=== PATIENT | female | born 1960 | race Caucasian/White ===

== ENCOUNTER → 2018-05-28 | Outpatient (CLI) | payer OTHER | END | disposition home or self-care (01) | LOC: RAD 15:02 | PROVIDERS: ATTEND Registered Nurse | DX: I51.7 Cardiomegaly (principal); R06.02 Shortness of breath; Z87.891 Personal history of nicotine dependence | CPT/HCPCS: 71046 ==

== ENCOUNTER 2018-07-27 08:04 | Day surgery (SDC) | payer OTHER ==
[~2018-07-27] VITALS: Ht 165.1 cm; Wt 96.4 kg
[2018-07-27 08:41] VITALS: BP 148/97
[2018-07-27] MEDS ORDERED: DILT240C61 PO (08:54)
[2018-07-27] MEDS ORDERED: ATOR20TA37 PO (08:54)
[2018-07-27] MEDS ORDERED: LEVO125T5 PO (08:54)
[2018-07-27] MEDS ORDERED: LISI1TAB5 PO (08:54)
[2018-07-27] MEDS ORDERED: ATEN50TA41 PO (08:54)
[2018-07-27] MEDS ORDERED: CLON1TAB11 PO (08:54)
[2018-07-27 09:48] LABS: BASOPHILS # (AUTO) 0.06 x10^3/uL (0-0.1); BASOPHILS % (AUTO) 1 % (0-1); EOSINOPHILS # (AUTO) 0.08 x10^3/uL (0-0.4); EOSINOPHILS % (AUTO) 1 % (1-7); LYMPHOCYTES # (AUTO) 2.78 x10^3/uL (1-3.4); LYMPHOCYTES % (AUTO) 31 % (22-44); MD NO; MEAN CORPUSCULAR HEMOGLOBIN 30.1 pg (27.0-34.8); MEAN CORPUSCULAR VOLUME 91.2 fL (80-100); MEAN PLATELET VOLUME 10.7 fL (7.4-10.4); MONOCYTES % (AUTO) 7 % (2-9); NEUTROPHILS # (AUTO) 5.43 x10^3/uL (1.8-6.8); NEUTROPHILS % (AUTO) 61 % (42-75); PLATELET COUNT 203 x10^3/uL (130-400); RED BLOOD COUNT 5.01 x10^6/uL (3.82-5.3); RED CELL DISTRIBUTION WIDTH 15.1 % (9.6-15.2)
[2018-07-27] MEDS ORDERED: MIDAZOLAM 1 MG/ML, 5ML ONE (09:53)
[2018-07-27] MEDS ORDERED: FENTANYL PF 250 MCG/5ML ONE (09:54)
[2018-07-27] MEDS ORDERED: LIDOCAINE 1%, 20ML ONE (09:54)
[2018-07-27 09:56] LABS: ANION GAP 7 mmol/L (5-15); CHLORIDE 110 mmol/L (98-107); CREATININE 1.23 mg/dL (0.55-1.02)
[2018-07-27] MEDS ORDERED: HEPARIN 1,000 UNITS/ML, 10ML ONE (10:45)
[2018-07-27] MEDS ORDERED: VERAPAMIL 2.5 MG/ML, 2ML ONE (10:45)
[2018-07-27] MEDS ORDERED: NITROGLYCERIN 5 MG/ML, 10ML ONE (10:45)
[2018-07-27] MEDS ORDERED: DIPHENHYDRAMINE 50 MG/ML, 1ML ONE (10:48)
[2018-07-27] MEDS ORDERED: LIDOCAINE-MPF 1%, 5ML ONE (11:35)
[2018-07-27] MEDS ORDERED: SODIUM CHLORIDE 0.9% 1,000 ML IV SCH (12:58)
== END 2018-07-27 14:59 | disposition home or self-care (01) ==
LOC: CACL 08:04
PROVIDERS: ATTEND Internal Medicine Cardiovascular Disease
DX: I27.20 Pulmonary hypertension, unspecified (principal); Z87.891 Personal history of nicotine dependence; Z72.89 Other problems related to lifestyle; I42.1 Obstructive hypertrophic cardiomyopathy; J44.9 Chronic obstructive pulmonary disease, unspecified; E78.5 Hyperlipidemia, unspecified
CPT/HCPCS: 36415; 80048; 85025; 93460; 99156; 99157; C1769; C1894; J1200; J1644; J2250; J3010; J3490; Q9967

== ENCOUNTER 2018-10-24 16:31 | Inpatient (IN) | payer OTHER ==
[~2018-10-24] VITALS: Ht 165.1 cm; Wt 85.9 kg
[2018-10-24] VITALS (7 sets, daily range): BP systolic 78–98; BP diastolic 36–54
[~2018-10-24 16:31] MED LIST: ATEN50TA41 PO; ATOR20TA37 PO; CLON1TAB11 PO; DILT240C61 PO; LEVO125T5 PO; LISI1TAB5 PO
--- NOTE | 2018-10-24 17:42 | NUR ---
PT WITH CO "FEELING FUZZY" X TODAY. PT REPORTS "HEARING HEART BEAT IN EARS" X TODAY AND DOUBLED HER ATENOLOL DOSE ASSUMING HTN. PT W/ MILD HYPOTENSION AT THIS TIME, 100/60 MANUALLY. PT PWD; DENIES CP/DIZZINESS/WEAKNESS AT THIS TIME. PT REPORTS RECENT ILLNESS, N/V/D TWO DAYS AGO. HX OF PULMONARY HTN, WEARS 5L O2 BY NC AT BASELINE. SPO2 >90% ON BASELINE O2. RR 20'S. PT APPEARS ANXIOUS. IV ATTEMPT X2 BY TECH. PER ERP, HOLD NEED FOR IV UNTIL LABS RESULT. BP/SPO2/ECG MONITORING IN PLACE. NSR ON MONITOR.
[2018-10-24] MEDS ORDERED: SODIUM CHLORIDE FLUSH 10ML SYR IVF ONE (18:00)
[2018-10-24 18:14] LABS: ALANINE AMINOTRANSFERASE 54 U/L (12-78); ALBUMIN 3.6 g/dL (3.4-5.0); ANION GAP 11 mmol/L (5-15); CALCIUM 8.6 mg/dL (8.5-10.1); CHLORIDE 103 mmol/L (98-107); CREATININE 2.02 mg/dL (0.55-1.02)
[2018-10-24 18:18] LABS: ALKALINE PHOSPHATASE 93 U/L (45-117); BILIRUBIN,TOTAL < 0.1 mg/dL (0.2-1.0); TOTAL PROTEIN 6.9 g/dL (6.4-8.2); TROPONIN I 0.042 ng/mL (0.000-0.045)
[2018-10-24 18:21] LABS: MEAN CORPUSCULAR HEMOGLOBIN 31.3 pg (27.0-34.8); MEAN CORPUSCULAR HGB CONC 32.7 g/dL (32.4-35.8); MEAN CORPUSCULAR VOLUME 95.7 fL (80-100); MEAN PLATELET VOLUME 10.2 fL (7.4-10.4); PLATELET COUNT 236 x10^3/uL (130-400); RED CELL DISTRIBUTION WIDTH 15.8 % (9.6-15.2)
[2018-10-24 18:22] LABS: HEMOGRAM NOTE RECHECKED
--- NOTE | 2018-10-24 18:22 | NUR ---
TASK RN: Critical values charted. ED MD aware. No lab redraw per ED MD.
[2018-10-24] MEDS ORDERED: SPIR25TA5 PO (18:40)
[2018-10-24] MEDS ORDERED: AMBR10TA3 PO (18:40)
[2018-10-24] MEDS ORDERED: TADA20TA33 PO (18:40)
[2018-10-24 19:06] LABS: MD YES
[2018-10-24 19:07] LABS: BAND#(MANUAL) 0.15 x10^3/uL; BANDS%(MANUAL) 1 % (0-7); LYMPH#(MANUAL) 3.02 x10^3/uL (1-3.4); LYMPHS% (MANUAL) 20 % (22-44); MONOS#(MANUAL) 0.76 x10^3/uL (0.3-2.7); MONOS% (MANUAL) 5 % (2-9)
[2018-10-24 19:10] LABS: ANISOCYTOSIS 1+; METAMYELOCYTES# (MANUAL) 0.15 x10^3/uL (0-0); METAMYELOCYTES% (MANUAL) 1 % (0-1); SEGS% (MANUAL) 73 % (42-75)
[2018-10-24 19:11] LABS: <PLATELET ESTIMATE> ADEQUATE; POLYCHROMASIA 1+
[2018-10-24 19:12] LABS: <PLT MORPHOLOGY> NORMAL PLT MORPH
--- NOTE | 2018-10-24 19:13 | NUR ---
IV PLACED BY JAYCEE BRUMFIELD. CONSENT FOR BLOOD SIGNED AND IS ON CHART.
--- NOTE | 2018-10-24 19:34 | NUR ---
REQUEST FOR BLOOD SENT. PER ERP, 500ML NS BOLUS HUNG FOR TX OF HYPOTENSION.
[2018-10-24] MEDS ORDERED: PANTOPRAZOLE 80 MG in SODIUM CHLORIDE 0.9% 50 ML IVPB ONE ×2 (19:40→21:00)
--- NOTE | 2018-10-24 19:42 | NUR ---
FIRST UNIT RBC HUNG. VERIFIED BY MATEO JIMÉNEZ. HOSPITALIST, PA AT BEDSIDE. 500ML NS BOLUS CONTINUES TO INFUSE.
--- NOTE | 2018-10-24 19:55 | NUR ---
PT COMFORTABLY HOLDING CONVERSATION WITH HOSPITALIST. NO S/S OF TRANSFUSION RXN NOTED.
[2018-10-24] MEDS ORDERED: SODIUM CHLORIDE 0.9% 1,000ML IVBOLUS ONE (20:00)
[2018-10-24] MEDS ORDERED: PANTOPRAZOLE 80 MG in SODIUM CHLORIDE 0.9% 100 ML IV SCH ×2 (20:00→21:15)
--- NOTE | 2018-10-24 20:07 | NUR ---
REPORT TO FLOOR RNDEENA. PROTONIX ORDERED ON PT. BLOOD RUNNING AT THIS TIME. FLOOR RN AGREES TO HANG PROTONIX BETWEEN UNITS. HOSPITALIST AWARE AND AGREES TO ORDER PROTONIX FLOOR ORDER.
--- NOTE | 2018-10-24 20:25 | NUR ---
PT TO FLOOR. BLOOD CONTINUES TO INFUSE
[2018-10-24] MEDS ORDERED: ONDANSETRON 2MG/ML, 2ML IVPush PRN (20:30)
[2018-10-24] MEDS ORDERED: ACETAMINOPHEN 325 MG TABLET PO PRN (20:30)
[2018-10-24 20:51] LABS: INTERNATIONAL NORMALIZED RATIO 0.97 (0.93-1.1); PROTHROMBIN TIME 10.2 Seconds (9.6-11.5)
[2018-10-24] MEDS: LACTATED RINGERS 1,000 ML IV SCH (23:20)
[2018-10-25] VITALS (13 sets, daily range): BP systolic 85–111; BP diastolic 5–70
[2018-10-25] MEDS ORDERED: SODIUM CHLORIDE 0.9%, 500ML IVBOLUS ONE
[2018-10-25] MEDS: morphine SULFATE 10 MG/ML, 1ML IVPush PRN ×4 (01:12→22:24)
[2018-10-25 02:15] LABS: ANION GAP 11 mmol/L (5-15); CALCIUM 8.2 mg/dL (8.5-10.1); CHLORIDE 109 mmol/L (98-107); CREATININE 1.57 mg/dL (0.55-1.02)
[2018-10-25] MEDS: LEVOTHYROXINE 125 MCG TABLET PO SCH (05:17)
[2018-10-25 05:34] LABS: BASOPHILS # (AUTO) 0.15 x10^3/uL (0-0.1); BASOPHILS % (AUTO) 1 % (0-1); EOSINOPHILS # (AUTO) 0.07 x10^3/uL (0-0.4); EOSINOPHILS % (AUTO) 1 % (1-7); LYMPHOCYTES # (AUTO) 2.24 x10^3/uL (1-3.4); LYMPHOCYTES % (AUTO) 18 % (22-44); MD NO; MEAN CORPUSCULAR HEMOGLOBIN 31.7 pg (27.0-34.8); MEAN CORPUSCULAR HGB CONC 33.8 g/dL (32.4-35.8); MEAN CORPUSCULAR VOLUME 93.8 fL (80-100); MEAN PLATELET VOLUME 9.8 fL (7.4-10.4); MONOCYTES # (AUTO) 0.84 x10^3/uL (0.2-0.8); MONOCYTES % (AUTO) 7 % (2-9); NEUTROPHILS # (AUTO) 9.17 x10^3/uL (1.8-6.8); NEUTROPHILS % (AUTO) 74 % (42-75); PLATELET COUNT 176 x10^3/uL (130-400); RED BLOOD COUNT 2.45 x10^6/uL (3.82-5.3)
[2018-10-25 05:41] LABS: CHLORIDE 109 mmol/L (98-107)
[2018-10-25 05:51] LABS: ANION GAP 8 mmol/L (5-15); CALCIUM 8.3 mg/dL (8.5-10.1); CHOL/HDL RATIO 3.9; CHOLESTEROL, TOTAL 144 mg/dL (140-239); CREATININE 1.39 mg/dL (0.55-1.02); HDL CHOL % 26 % (28-40); HDL CHOLESTEROL (DIRECT) 37 mg/dL (40-60); LDL CHOLESTEROL,CALCULATED 78 mg/dL (54-169); LDL/HDL RATIO 2.1 (0.5-3.0); TRIGLYCERIDES 143 mg/dL (50-200); VLDL CHOLESTEROL 29 mg/dL (0-25)
[2018-10-25] MEDS ORDERED: PROPOFOL 10 MG/ML, 20ML ONE (08:39)
[2018-10-25] MEDS ORDERED: PROPOFOL 10 MG/ML, 50ML ONE (08:39)
[2018-10-25] MEDS ORDERED: AMBRISENTAN 10 MG HOMEMEDPO SCH (09:00)
[2018-10-25] MEDS ORDERED: Tadalafil** (Adcirca**) 40 MG) HOMEMEDPO SCH (09:00)
[2018-10-25] MEDS ORDERED: DIPHENHYDRAMINE 50 MG/ML, 1ML IVPush PRN (09:30)
[2018-10-25] MEDS ORDERED: EPHEDRINE 50 MG/ML, 1ML IVPush PRN (09:30)
[2018-10-25] MEDS ORDERED: EPHEDRINE 50 MG/ML, 1ML IM PRN (09:30)
[2018-10-25] MEDS ORDERED: ONDANSETRON ODT 8 MG PO PRN (09:30)
[2018-10-25] MEDS ORDERED: OXYcodone 5 MG/5 ML ORAL.SOL UDC PO PRN (09:30)
[2018-10-25] MEDS ORDERED: MIDAZOLAM 1 MG/ML, 2ML IV PRN (09:30)
[2018-10-25] MEDS ORDERED: MORPHINE SULFATE 4 MG/ML, 1ML IVPush PRN (09:30)
[2018-10-25] MEDS ORDERED: FENTANYL PF 100 MCG/2ML IV PRN (09:30)
[2018-10-25] MEDS ORDERED: ONDANSETRON 2MG/ML, 2ML IV PRN (09:30)
[2018-10-25] MEDS: OMEPRAZOLE 20 MG CAPSULE.DR PO SCH (10:28)
[2018-10-25] MEDS: LACTATED RINGERS 1,000 ML IV SCH (16:19)
[2018-10-26] MEDS: morphine SULFATE 10 MG/ML, 1ML IVPush PRN (01:57)
[2018-10-26 02:02] VITALS: BP 113/61
[2018-10-26] MEDS: OMEPRAZOLE 20 MG CAPSULE.DR PO SCH (05:47)
[2018-10-26] MEDS: LEVOTHYROXINE 125 MCG TABLET PO SCH (05:48)
[2018-10-26] MEDS: LACTATED RINGERS 1,000 ML IV SCH (05:59)
[2018-10-26 07:41] VITALS: BP 100/64
[2018-10-26 08:38] LABS: ALANINE AMINOTRANSFERASE 32 U/L (12-78); ANION GAP 9 mmol/L (5-15); CALCIUM 8.2 mg/dL (8.5-10.1); CHLORIDE 109 mmol/L (98-107); CREATININE 0.99 mg/dL (0.55-1.02)
[2018-10-26 08:41] LABS: ALKALINE PHOSPHATASE 85 U/L (45-117); BILIRUBIN,TOTAL 0.3 mg/dL (0.2-1.0); TOTAL PROTEIN 6.1 g/dL (6.4-8.2)
[2018-10-26 12:16] LABS: MEAN CORPUSCULAR HEMOGLOBIN 31.4 pg (27.0-34.8); MEAN CORPUSCULAR HGB CONC 33.1 g/dL (32.4-35.8); MEAN CORPUSCULAR VOLUME 95.1 fL (80-100); MEAN PLATELET VOLUME 9.5 fL (7.4-10.4); PLATELET COUNT 179 x10^3/uL (130-400); RED BLOOD COUNT 2.35 x10^6/uL (3.82-5.3); RED CELL DISTRIBUTION WIDTH 15.8 % (9.6-15.2)
[2018-10-26 12:52] LABS: BASOPHILS # (AUTO) 0.03 x10^3/uL (0-0.1); BASOPHILS % (AUTO) 0 % (0-1); EOSINOPHILS # (AUTO) 0.09 x10^3/uL (0-0.4); EOSINOPHILS % (AUTO) 1 % (1-7); LYMPHOCYTES # (AUTO) 1.53 x10^3/uL (1-3.4); LYMPHOCYTES % (AUTO) 14 % (22-44); MD SCAN; MONOCYTES # (AUTO) 0.81 x10^3/uL (0.2-0.8); MONOCYTES % (AUTO) 7 % (2-9); NEUTROPHILS % (AUTO) 78 % (42-75)
[2018-10-26] MEDS ORDERED: OMEP-110 PO (12:58)
[2018-10-26] MEDS ORDERED: FERR325T5 PO (12:58)
[2018-10-26 13:35] VITALS: BP 109/68
== END 2018-10-26 14:42 | disposition home or self-care (01) | DRG 682 ==
LOC: ED 19:27 → EDIP 20:08 → 4EST 20:45 → 4WST 10-25 21:10 → DCLOUNGE 10-26 14:13
PROVIDERS: ADMIT Family Medicine; ATTEND Family Medicine
PROC: 30233N1 Transfusion of Nonautologous Red Blood Cells into Peripheral Vein, Percutaneous Approach (ICD-10-PCS; principal; 2018-10-24)
PROC: 0DB68ZX Excision of Stomach, Via Natural or Artificial Opening Endoscopic, Diagnostic (ICD-10-PCS; 2018-10-25)
PROC: 0W3P8ZZ Control Bleeding in Gastrointestinal Tract, Via Natural or Artificial Opening Endoscopic (ICD-10-PCS; 2018-10-25)
DX: N17.9 Acute kidney failure, unspecified (principal); K29.71 Gastritis, unspecified, with bleeding; K29.81 Duodenitis with bleeding; J96.10 Chronic respiratory failure, unspecified whether with hypoxia or hypercapnia; D62 Acute posthemorrhagic anemia; K31.89 Other diseases of stomach and duodenum; D50.9 Iron deficiency anemia, unspecified; E03.9 Hypothyroidism, unspecified; E66.9 Obesity, unspecified; Z68.31 Body mass index [BMI] 31.0-31.9, adult; E78.5 Hyperlipidemia, unspecified; E87.5 Hyperkalemia; F41.1 Generalized anxiety disorder; I10 Essential (primary) hypertension; H93.A9 Pulsatile tinnitus, unspecified ear; I27.21 Secondary pulmonary arterial hypertension; I73.00 Raynaud's syndrome without gangrene; I99.8 Other disorder of circulatory system; Z83.79 Family history of other diseases of the digestive system; Z87.891 Personal history of nicotine dependence; Z99.81 Dependence on supplemental oxygen
CPT/HCPCS: 36415; 36430; 71045; 80048; 80053; 80061; 83880; 84439; 84443; 84484; 85014; 85018; 85025; 85610; 85730; 86850; 86900; 86923; 87338; 88305; 88342; 93005; 93306; G0378; J2704; C9113; J2270; J7030; J7040; J7120; P9016

== ENCOUNTER 2018-10-28 13:02 | Inpatient (IN) | payer OTHER ==
[~2018-10-28] VITALS: Ht 165.1 cm; Wt 93.2 kg
[~2018-10-28 13:02] MED LIST changes: +AMBR10TA3 PO; +FERR325T5 PO; +OMEP-110 PO; +SPIR25TA5 PO; +TADA20TA33 PO
--- NOTE | 2018-10-28 13:54 | NUR ---
PT ON HEART MONITOR, BP CUFF, PULSE OX AND OXYGEN. PT HYPOTENSIVE 80S/50S, IVF BOLUS INFUSING. LABS DRAWN, HOLD ON PAIN MEDS AT THIS TIME D/T HYPOTENSION. CALL LIGHT WITHIN REACH, FAMILY AT BS.
[2018-10-28] MEDS ORDERED: SODIUM CHLORIDE FLUSH 10ML SYR IVF ONE (14:00)
[2018-10-28] MEDS ORDERED: SODIUM CHLORIDE 0.9% 1,000ML IVBOLUS ONE (14:00)
[2018-10-28] MEDS ORDERED: HYDROmorphone 2 MG/ML, 1ML ONE (14:08)
[2018-10-28 14:15] LABS: ALANINE AMINOTRANSFERASE 36 U/L (12-78); ALBUMIN 2.7 g/dL (3.4-5.0); ANION GAP 8 mmol/L (5-15); CALCIUM 8.2 mg/dL (8.5-10.1); CHLORIDE 104 mmol/L (98-107); CREATININE 0.88 mg/dL (0.55-1.02)
[2018-10-28] MEDS: HYDROmorphone 1 MG/ML, 1ML INJ IVPush PRN ×2 (14:15→16:23)
--- NOTE | 2018-10-28 14:16 | NUR ---
BP 91/52, PT MEDICATED WITH DILAUDID FOR 8/10 R SHOULDER PAIN. FAMILY AT BS.
--- NOTE | 2018-10-28 14:20 | NUR ---
PT RATES PAIN AT 0/10 WITHOUT MOVEMENT AT THIS TIME. BP 90/52.
[2018-10-28 14:22] LABS: ALKALINE PHOSPHATASE 73 U/L (45-117); BILIRUBIN,TOTAL 0.7 mg/dL (0.2-1.0); TOTAL PROTEIN 6.2 g/dL (6.4-8.2)
[2018-10-28 14:41] LABS: MEAN CORPUSCULAR HGB CONC 32.7 g/dL (32.4-35.8); MEAN CORPUSCULAR VOLUME 94.9 fL (80-100); MEAN PLATELET VOLUME 10.9 fL (7.4-10.4); PLATELET COUNT 195 x10^3/uL (130-400); RED BLOOD COUNT 2.32 x10^6/uL (3.82-5.3); RED CELL DISTRIBUTION WIDTH 16.3 % (9.6-15.2)
--- NOTE | 2018-10-28 14:42 | NUR ---
CRITICAL LABS REPORTED TO DR JENKINS.
[2018-10-28] MEDS ORDERED: PLEASE ENTER HEIGHT AND WEIGHT MC SCH (15:00)
[2018-10-28] MEDS ORDERED: CEFTRIAXONE PMX 1GM/50ML 50 ML IVPB ONE (15:00)
--- NOTE | 2018-10-28 15:01 | NUR ---
2ND IV PLACED, VSS.
[2018-10-28] MEDS ORDERED: CEFTRIAXONE PMX 1GM/50ML 50 ML ONE (15:12)
[2018-10-28 15:20] LABS: BASOPHILS # (AUTO) 0.25 x10^3/uL (0-0.1); BASOPHILS % (AUTO) 2 % (0-1); EOSINOPHILS # (AUTO) 0.02 x10^3/uL (0-0.4); EOSINOPHILS % (AUTO) 0 % (1-7); LYMPHOCYTES # (AUTO) 1.08 x10^3/uL (1-3.4); LYMPHOCYTES % (AUTO) 9 % (22-44); MD SCAN; MONOCYTES # (AUTO) 0.58 x10^3/uL (0.2-0.8); MONOCYTES % (AUTO) 5 % (2-9); NEUTROPHILS # (AUTO) 10.65 x10^3/uL (1.8-6.8); NEUTROPHILS % (AUTO) 85 % (42-75)
--- NOTE | 2018-10-28 15:20 | NUR ---
EKG ORDERED/GROUP THERAPY COUNSELOR IN TO COMPLETE.
[2018-10-28 15:35] LABS: HCT (SEDRATE) 22.4 % (34.6-47.8)
--- NOTE | 2018-10-28 15:51 | NUR ---
REPORT TO NASRIN GALINDO. PT READY FOR TRANSPORT. MED REC COMPLETED.
--- NOTE | 2018-10-28 16:02 | NUR ---
ROOM ASSIGNMENT CHANGED TO TELE.
--- NOTE | 2018-10-28 16:42 | NUR ---
Critical lab reieved over phone, trop [phone]. Dr raya and primary RN aware.
[2018-10-28] MEDS ORDERED: hydrALAzine 20 MG/ML, 1ML IVPush PRN (17:30)
[2018-10-28] MEDS ORDERED: FUROSEMIDE 20 MG/2 ML IV ONE (17:30)
[2018-10-28] MEDS ORDERED: morphine SULFATE 10 MG/ML, 1ML IVPush PRN ×2 (17:30→20:30)
[2018-10-28] MEDS ORDERED: BACLOFEN 10 MG TABLET PO PRN (17:30)
[2018-10-28] MEDS ORDERED: HYDROcodone/APAP 5/325 TABLET PO PRN ×2 (17:30→21:30)
[2018-10-28] MEDS ORDERED: POLYETHYLENE GLYCOL 17 GM PACKET PO PRN (17:30)
[2018-10-28] MEDS ORDERED: ENALAPRILAT 1.25 MG/ML, 2ML IVPush PRN (17:30)
[2018-10-28] MEDS ORDERED: LIDODERM 5% PATCH TD PRN (17:30)
[2018-10-28] MEDS ORDERED: BISACODYL 10 MG SUPP PR PRN (17:30)
[2018-10-28 17:38] VITALS: BP 107/69
[2018-10-28] MEDS: ACETAMINOPHEN 325 MG TABLET PO PRN (17:43)
[2018-10-28 17:58] LABS: INTERNATIONAL NORMALIZED RATIO 0.99 (0.93-1.1); PROTHROMBIN TIME 10.4 Seconds (9.6-11.5)
[2018-10-28 18:05] LABS: FREE T4 (FREE THYROXINE) 0.79 ng/dL (0.76-1.46)
[2018-10-28] MEDS: AZITHROMYCIN 500 MG in SODIUM CHLORIDE 0.9% 250 ML IV SCH (18:19)
[2018-10-28 18:22] VITALS: BP 95/58
[2018-10-28 19:07] LABS: CULTURE INDICATED? YES; MICROSCOPIC INDICATED
[2018-10-28 20:25] VITALS: BP 90/55
[2018-10-28] MEDS ORDERED: LEVO125T5 PO (20:42)
[2018-10-28 20:51] VITALS: BP 93/59
[2018-10-28] MEDS ORDERED: DOCUSATE 100 MG CAPSULE PO PRN (21:00)
[2018-10-28 21:40] VITALS: BP 92/60
[2018-10-28 23:37] VITALS: BP 132/83
[2018-10-29] VITALS (13 sets, daily range): BP systolic 91–124; BP diastolic 56–76
[2018-10-29] MEDS: ATORVASTATIN 20 MG TABLET PO SCH ×2 (00:03→21:06)
[2018-10-29 05:30] LABS: ALBUMIN 2.6 g/dL (3.4-5.0); ANION GAP 8 mmol/L (5-15); CALCIUM 8.6 mg/dL (8.5-10.1); CHLORIDE 106 mmol/L (98-107)
[2018-10-29 05:36] LABS: ALANINE AMINOTRANSFERASE 45 U/L (12-78); ALKALINE PHOSPHATASE 75 U/L (45-117); BILIRUBIN,TOTAL 0.8 mg/dL (0.2-1.0); CHOL/HDL RATIO 2.6; CHOLESTEROL, TOTAL 148 mg/dL (140-239); CREATININE 0.87 mg/dL (0.55-1.02); HDL CHOL % 39 % (28-40); HDL CHOLESTEROL (DIRECT) 57 mg/dL (40-60); LDL CHOLESTEROL,CALCULATED 76 mg/dL (54-169); LDL/HDL RATIO 1.3 (0.5-3.0); TOTAL PROTEIN 6.2 g/dL (6.4-8.2); TRIGLYCERIDES 74 mg/dL (50-200); VLDL CHOLESTEROL 15 mg/dL (0-25)
[2018-10-29] MEDS ORDERED: OMEPRAZOLE 20 MG CAPSULE.DR PO SCH (06:00)
[2018-10-29] MEDS ORDERED: FLUT9.9S NAS (06:25)
[2018-10-29] MEDS ORDERED: POTASSIUM CHLORIDE 20 MEQ TAB.ER.PRT PO ONE (06:30)
[2018-10-29] MEDS ORDERED: MAGNESIUM SULFATE PMX 2GM/50ML 50 ML IV ONE (06:30)
[2018-10-29] MEDS ORDERED: PANTOPRAZOLE 40 MG IV IVPush SCH (07:30)
[2018-10-29] MEDS ORDERED: FUROSEMIDE 20 MG/2 ML IV ONE (08:00)
[2018-10-29] MEDS: LEVOTHYROXINE 125 MCG TABLET PO SCH (09:32)
[2018-10-29] MEDS: SUCRALFATE 1 GM/10 ML UDC PO SCH ×3 (12:26→21:06)
[2018-10-29] MEDS: CEFTRIAXONE PMX 1GM/50ML 50 ML IV SCH (15:19)
[2018-10-29] MEDS ORDERED: PANTOPROZOLE 40MG TABLET PO SCH (16:33)
[2018-10-29] MEDS ORDERED: GADOBUTROL 10 MMOL/10 ML PFS ONE (17:56)
[2018-10-29] MEDS: AZITHROMYCIN 500 MG in SODIUM CHLORIDE 0.9% 250 ML IV SCH (18:33)
[2018-10-29] MEDS: FERROUS SULFATE 325 MG TABLET PO SCH (18:34)
[2018-10-29] MEDS ORDERED: ADCIRCA 20 MG HOMEMEDPO SCH (21:00)
[2018-10-29] MEDS: PANTOPRAZOLE 40 MG IV IVPush SCH (21:06)
[2018-10-30] MEDS ORDERED: DIPHENHYDRAMINE 50 MG CAPSULE PO PRN
[2018-10-30 02:21] VITALS: BP 90/56
[2018-10-30] MEDS: ACETAMINOPHEN 325 MG TABLET PO PRN ×2 (05:32→09:41)
[2018-10-30 05:42] LABS: BASOPHILS # (AUTO) 0.02 x10^3/uL (0-0.1); BASOPHILS % (AUTO) 0 % (0-1); EOSINOPHILS % (AUTO) 4 % (1-7); LYMPHOCYTES # (AUTO) 1.77 x10^3/uL (1-3.4); LYMPHOCYTES % (AUTO) 22 % (22-44); MD NO; MEAN CORPUSCULAR HEMOGLOBIN 30.3 pg (27.0-34.8); MEAN CORPUSCULAR HGB CONC 32.9 g/dL (32.4-35.8); MEAN CORPUSCULAR VOLUME 92.1 fL (80-100); MEAN PLATELET VOLUME 10.2 fL (7.4-10.4); MONOCYTES % (AUTO) 5 % (2-9); NEUTROPHILS # (AUTO) 5.39 x10^3/uL (1.8-6.8); NEUTROPHILS % (AUTO) 69 % (42-75); PLATELET COUNT 214 x10^3/uL (130-400); RED CELL DISTRIBUTION WIDTH 16.8 % (9.6-15.2)
[2018-10-30 06:05] LABS: CHLORIDE 108 mmol/L (98-107)
[2018-10-30 06:09] LABS: ANION GAP 7 mmol/L (5-15); CALCIUM 8.2 mg/dL (8.5-10.1); CREATININE 0.95 mg/dL (0.55-1.02)
[2018-10-30] MEDS: SUCRALFATE 1 GM/10 ML UDC PO SCH ×4 (07:00→20:50)
[2018-10-30 07:02] VITALS: BP 91/56
[2018-10-30] MEDS: FERROUS SULFATE 325 MG TABLET PO SCH ×3 (08:00→17:20)
[2018-10-30] MEDS: FLUTICASONE NASAL SPRAY 16GM NAS SCH ×2 (09:34→20:51)
[2018-10-30] MEDS: SPIRONOLACTONE 25 MG TABLET PO SCH (09:36)
[2018-10-30] MEDS: LEVOTHYROXINE 125 MCG TABLET PO SCH (09:36)
[2018-10-30] MEDS: PANTOPRAZOLE 40 MG IV IVPush SCH (09:36)
[2018-10-30] MEDS: CEFTRIAXONE PMX 1GM/50ML 50 ML IV SCH (14:36)
[2018-10-30 15:56] VITALS: BP 94/63
[2018-10-30] MEDS: AZITHROMYCIN 500 MG in SODIUM CHLORIDE 0.9% 250 ML IV SCH (17:20)
[2018-10-30 18:54] VITALS: BP 109/72
[2018-10-30 20:50] VITALS: BP 111/74
[2018-10-30] MEDS: ATORVASTATIN 20 MG TABLET PO SCH (20:50)
[2018-10-31] MEDS: ACETAMINOPHEN 325 MG TABLET PO PRN (00:08)
[2018-10-31 00:40] VITALS: BP 90/56
[2018-10-31 05:50] LABS: BASOPHILS # (AUTO) 0.16 x10^3/uL (0-0.1); BASOPHILS % (AUTO) 2 % (0-1); EOSINOPHILS # (AUTO) 0.29 x10^3/uL (0-0.4); EOSINOPHILS % (AUTO) 4 % (1-7); LYMPHOCYTES # (AUTO) 1.63 x10^3/uL (1-3.4); LYMPHOCYTES % (AUTO) 22 % (22-44); MD NO; MEAN CORPUSCULAR HEMOGLOBIN 29.8 pg (27.0-34.8); MEAN CORPUSCULAR HGB CONC 32.4 g/dL (32.4-35.8); MEAN CORPUSCULAR VOLUME 91.9 fL (80-100); MEAN PLATELET VOLUME 9.5 fL (7.4-10.4); MONOCYTES # (AUTO) 0.45 x10^3/uL (0.2-0.8); MONOCYTES % (AUTO) 6 % (2-9); NEUTROPHILS # (AUTO) 4.93 x10^3/uL (1.8-6.8); NEUTROPHILS % (AUTO) 66 % (42-75); PLATELET COUNT 245 x10^3/uL (130-400); RED BLOOD COUNT 2.51 x10^6/uL (3.82-5.3); RED CELL DISTRIBUTION WIDTH 16.7 % (9.6-15.2)
[2018-10-31 05:55] LABS: CHLORIDE 111 mmol/L (98-107)
[2018-10-31 06:05] LABS: ALANINE AMINOTRANSFERASE 54 U/L (12-78); ALBUMIN 2.3 g/dL (3.4-5.0); ALKALINE PHOSPHATASE 79 U/L (45-117); BILIRUBIN,TOTAL 0.3 mg/dL (0.2-1.0); CALCIUM 8.3 mg/dL (8.5-10.1); CREATININE 0.82 mg/dL (0.55-1.02); TOTAL PROTEIN 5.5 g/dL (6.4-8.2)
[2018-10-31 06:12] LABS: ANION GAP 7 mmol/L (5-15)
[2018-10-31] MEDS: SUCRALFATE 1 GM/10 ML UDC PO SCH ×2 (07:10→11:42)
[2018-10-31 08:32] VITALS: BP 104/67
[2018-10-31] MEDS: FERROUS SULFATE 325 MG TABLET PO SCH ×2 (08:36→11:43)
[2018-10-31] MEDS: LEVOTHYROXINE 125 MCG TABLET PO SCH (08:36)
[2018-10-31] MEDS: SPIRONOLACTONE 25 MG TABLET PO SCH (08:36)
[2018-10-31] MEDS: FLUTICASONE NASAL SPRAY 16GM NAS SCH (08:40)
[2018-10-31 12:29] LABS: OCCULT BLOOD NEGATIVE (NEGATIVE)
[2018-10-31 13:00] VITALS: BP 127/82
[2018-10-31] MEDS ORDERED: LIDO700A20 TD (14:56)
[2018-10-31] MEDS ORDERED: SUCR1ORA5 PO (14:56)
[2018-10-31] MEDS: CEFTRIAXONE PMX 1GM/50ML 50 ML IV SCH (15:35)
[2018-10-31] MEDS ORDERED: CEFD300C37 PO (16:53)
[2018-10-31] MEDS ORDERED: AZIT500T PO (16:53)
== END 2018-10-31 16:45 | disposition home or self-care (01) | DRG 871 ==
LOC: ED 15:55 → EDIP 16:08 → 5SO 17:17 → DCLOUNGE 10-31 16:43
PROVIDERS: ADMIT Hospitalist; ATTEND Hospitalist
PROC: 30233N1 Transfusion of Nonautologous Red Blood Cells into Peripheral Vein, Percutaneous Approach (ICD-10-PCS; principal; 2018-10-28)
DX: A41.9 Sepsis, unspecified organism (principal); J18.9 Pneumonia, unspecified organism; J96.11 Chronic respiratory failure with hypoxia; D50.0 Iron deficiency anemia secondary to blood loss (chronic); E03.9 Hypothyroidism, unspecified; E78.5 Hyperlipidemia, unspecified; E83.42 Hypomagnesemia; F41.9 Anxiety disorder, unspecified; G89.29 Other chronic pain; I11.0 Hypertensive heart disease with heart failure; M25.511 Pain in right shoulder; I27.21 Secondary pulmonary arterial hypertension; I50.9 Heart failure, unspecified; I73.00 Raynaud's syndrome without gangrene; M75.110 Incomplete rotator cuff tear or rupture of unspecified shoulder, not specified as traumatic; Z87.891 Personal history of nicotine dependence; M65.9 Synovitis and tenosynovitis, unspecified; K29.80 Duodenitis without bleeding; K29.70 Gastritis, unspecified, without bleeding; I99.8 Other disorder of circulatory system; I25.9 Chronic ischemic heart disease, unspecified
CPT/HCPCS: 36415; 71045; 80048; 80053; 80061; 81001; 82272; 83605; 83690; 83735; 83880; 84100; 84145; 84439; 84443; 84484; 85014; 85018; 85025; 85610; 85651; 86140; 86850; 86900; 86923; 87040; 87086; 93005; 96365; A9585; G0378; J0456; J0696; J1170; C9113; J1940; J3475; J7030; J7050; P9016

== ENCOUNTER 2018-11-04 08:39 | Inpatient (IN) | payer OTHER ==
[~2018-11-04] VITALS: Ht 165.1 cm; Wt 100.2 kg
[2018-11-04] VITALS (12 sets, daily range): BP systolic 83–112; BP diastolic 46–70
[~2018-11-04 08:39] MED LIST changes: +AZIT500T PO; +CEFD300C37 PO; +FLUT9.9S NAS; +LIDO700A20 TD; +SUCR1ORA5 PO
[2018-11-04] MEDS: SODIUM CHLORIDE 0.9% 1,000ML IVBOLUS ONE ×2 (10:00→15:30)
[2018-11-04] MEDS: SODIUM CHLORIDE FLUSH 10ML SYR IVF ONE ×2 (10:00→15:30)
--- NOTE | 2018-11-04 10:30 | NUR ---
PT STATES SHE STARTED DEVELOPING PAIN ACROSS HER CHEST AND INTO HER SHOULDERS LAST NIGHT. RECENT ADMISSION WITH ANEMIA AND PNEUMONIA. REQUIRES OXYGEN 5L AT HOME FOR PULMONARY HTN.
--- NOTE | 2018-11-04 10:47 | NUR ---
CT UNABLE TO PERFORM EXAM UNTIL LAB RESULTS ARE BACK
[2018-11-04 10:52] LABS: MEAN CORPUSCULAR HEMOGLOBIN 30.6 pg (27.0-34.8); MEAN CORPUSCULAR HGB CONC 32.5 g/dL (32.4-35.8); MEAN CORPUSCULAR VOLUME 94.3 fL (80-100); MEAN PLATELET VOLUME 8.6 fL (7.4-10.4); PLATELET COUNT 287 x10^3/uL (130-400)
[2018-11-04 10:59] LABS: ALBUMIN 2.7 g/dL (3.4-5.0); ANION GAP 7 mmol/L (5-15); CALCIUM 8.1 mg/dL (8.5-10.1); CHLORIDE 110 mmol/L (98-107)
[2018-11-04 11:03] LABS: ANISOCYTOSIS 1+; BASOPHILS # (AUTO) 0.06 x10^3/uL (0-0.1); BASOPHILS % (AUTO) 1 % (0-1); EOSINOPHILS # (AUTO) 0.05 x10^3/uL (0-0.4); EOSINOPHILS % (AUTO) 1 % (1-7); LYMPHOCYTES # (AUTO) 1.41 x10^3/uL (1-3.4); LYMPHOCYTES % (AUTO) 17 % (22-44); MD MORPH REVIEW ONLY; MONOCYTES # (AUTO) 0.39 x10^3/uL (0.2-0.8); MONOCYTES % (AUTO) 5 % (2-9); NEUTROPHILS # (AUTO) 6.24 x10^3/uL (1.8-6.8); NEUTROPHILS % (AUTO) 77 % (42-75); OVALOCYTES 1+; POLYCHROMASIA 1+
[2018-11-04 11:04] LABS: <PLATELET ESTIMATE> ADEQUATE; <PLT MORPHOLOGY> NORMAL PLT MORPH
[2018-11-04 11:06] LABS: ALANINE AMINOTRANSFERASE 59 U/L (12-78); ALKALINE PHOSPHATASE 75 U/L (45-117); BILIRUBIN,TOTAL 0.3 mg/dL (0.2-1.0); CREATININE 1.18 mg/dL (0.55-1.02); TOTAL PROTEIN 5.9 g/dL (6.4-8.2)
--- NOTE | 2018-11-04 11:20 | NUR ---
LOW HEMOGLOBIN REQUIRING TRANSFUSION. AWAITING BLOOD BANK. HEMOCULT SAMPLE NEGATIVE FOR BLOOD.
--- NOTE | 2018-11-04 11:56 | NUR ---
RETURNED FROM CT. REPORT TO BARRETT RN
[2018-11-04] MEDS ORDERED: OMNIPAQUE 350 MG/ML, 100ML BOTTLE ONE (12:00)
--- NOTE | 2018-11-04 12:13 | NUR ---
INCREASED ST DEPRESSION NOTED ON MONITOR BY SHEET TESTER. ERP NOTIFIED. BODY CORPORATE MANAGER AT BS FOR REPEAT EKG.
[2018-11-04] MEDS: PIPERACILLIN/TAZO/PMX 3.375GM 50 ML IV ONE ×2 (12:30→14:30)
--- NOTE | 2018-11-04 12:40 | NUR ---
PT REFUSING ANOTHER IV START FOR ANTIBIOTICS. STATES, "JUST GIVE ME THE ANTIBIOTICS THROUGH THIS IV WHEN THE BLOOD IS DONE." SVP MONETIZATION NOTIFIED.
--- NOTE | 2018-11-04 12:40 | NUR ---
BP 80s/40s. PT A&OX4, ASYMPTOMATIC. ERP NOTIFIED. WILL RE-ASSESS DURING AND AFTER BLOOD TRANSFUSION.
--- NOTE | 2018-11-04 14:10 | NUR ---
BLOOD TRANSFUSION COMPLETED, PT TOLERATED WELL, NO S/S OF REACTION. BP STILL LOW, 80s-90s SYSTOLIC. ADMITTING NOTIFIED. Addendum: 11/04/18 at 1515 by AURAON SEE BLOOD TRANSFUSION RECORD FOR VS. Addendum: 11/04/18 at 1529 by JESSICA PT AMBULATED TO BR WITH STAND BY ASSIST WITHOUT DIFFICULTY.
[2018-11-04] MEDS ORDERED: ONDANSETRON 2MG/ML, 2ML IVPush PRN (14:30)
[2018-11-04] MEDS ORDERED: ACETAMINOPHEN 325 MG TABLET PO PRN (14:30)
[2018-11-04] MEDS ORDERED: HYDROcodone/APAP 5/325 TABLET PO PRN (14:30)
[2018-11-04] MEDS ORDERED: hydrALAzine 20 MG/ML, 1ML IVPush PRN (14:30)
[2018-11-04] MEDS ORDERED: morphine SULFATE 10 MG/ML, 1ML IVPush PRN (14:30)
[2018-11-04] MEDS ORDERED: LIDODERM 5% PATCH TD PRN (14:30)
[2018-11-04] MEDS ORDERED: GUAIFENESIN/COD200MG-20MG/10ML LIQUID PO PRN (14:30)
[2018-11-04] MEDS ORDERED: PIPERACILLIN/TAZO/PMX 3.375GM 50 ML ONE (14:31)
--- NOTE | 2018-11-04 15:29 | NUR ---
BP IMPROVED TO 112/65 AT THIS TIME. OTHER VSS. REPORTED TO LILY ON TELE FLOOR.
[2018-11-04] MEDS: PIPERACILLIN/TAZO/PMX 3.375GM 50 ML IV SCH ×2 (16:01→23:38)
[2018-11-04] MEDS: SUCRALFATE 1 GM/10 ML UDC PO SCH ×2 (16:14→21:24)
[2018-11-04] MEDS: FERROUS SULFATE 325 MG TABLET PO SCH ×2 (16:14→21:24)
[2018-11-04] MEDS: ATORVASTATIN 20 MG TABLET PO SCH (21:24)
[2018-11-04] MEDS: TEMPLATE NON-FORMULARY MED. (Tadalafil** (Adcirca**) 40 MG) HOMEMEDPO SCH (21:25)
[2018-11-04] MEDS: TEMPLATE NON-FORMULARY MED. (Ambrisentan (Letairis**) 10 MG) HOMEMEDPO SCH (21:26)
[2018-11-05 01:21] VITALS: BP 97/53
[2018-11-05] MEDS: LEVOTHYROXINE 125 MCG TABLET PO SCH (04:51)
[2018-11-05] MEDS: OMEPRAZOLE 20 MG CAPSULE.DR PO SCH (04:52)
[2018-11-05] MEDS: PIPERACILLIN/TAZO/PMX 3.375GM 50 ML IV SCH ×3 (04:53→17:59)
[2018-11-05 05:19] LABS: MEAN CORPUSCULAR HEMOGLOBIN 29.6 pg (27.0-34.8); MEAN CORPUSCULAR HGB CONC 32.4 g/dL (32.4-35.8); MEAN CORPUSCULAR VOLUME 91.4 fL (80-100); MEAN PLATELET VOLUME 9.1 fL (7.4-10.4); PLATELET COUNT 243 x10^3/uL (130-400); RED BLOOD COUNT 2.44 x10^6/uL (3.82-5.3); RED CELL DISTRIBUTION WIDTH 18.8 % (9.6-15.2)
[2018-11-05 05:30] LABS: ANION GAP 7 mmol/L (5-15); CALCIUM 8.2 mg/dL (8.5-10.1); CHLORIDE 111 mmol/L (98-107)
[2018-11-05 05:35] LABS: CREATININE 1.02 mg/dL (0.55-1.02); TROPONIN I 0.178 ng/mL (0.000-0.045)
[2018-11-05 05:46] LABS: BASOPHILS % (AUTO) 1 % (0-1); EOSINOPHILS % (AUTO) 2 % (1-7); LYMPHOCYTES % (AUTO) 23 % (22-44); MD SCAN; MONOCYTES # (AUTO) 0.41 x10^3/uL (0.2-0.8); MONOCYTES % (AUTO) 5 % (2-9); NEUTROPHILS % (AUTO) 70 % (42-75)
[2018-11-05] MEDS: SUCRALFATE 1 GM/10 ML UDC PO SCH ×4 (05:48→20:57)
[2018-11-05 07:40] VITALS: BP 115/64
[2018-11-05] MEDS: FERROUS SULFATE 325 MG TABLET PO SCH ×3 (08:34→20:58)
[2018-11-05] MEDS: FUROSEMIDE 40 MG/4 ML IV SCH (08:38)
[2018-11-05] MEDS ORDERED: TEMPLATE NON-FORMULARY MED. (Tadalafil** (Adcirca**) 40 MG) HOMEMEDPO SCH (09:00)
[2018-11-05] MEDS ORDERED: TEMPLATE NON-FORMULARY MED. (Ambrisentan (Letairis**) 10 MG) HOMEMEDPO SCH (09:00)
[2018-11-05 13:32] VITALS: BP 97/63
[2018-11-05 18:59] VITALS: BP 99/64
[2018-11-05] MEDS: ATORVASTATIN 20 MG TABLET PO SCH (20:58)
[2018-11-05] MEDS: TEMPLATE NON-FORMULARY MED. (Tadalafil** (Adcirca**) 40 MG) HOMEMEDPO SCH (21:00)
[2018-11-05] MEDS: TEMPLATE NON-FORMULARY MED. (Ambrisentan (Letairis**) 10 MG) HOMEMEDPO SCH (21:00)
[2018-11-05 21:52] LABS: MEAN CORPUSCULAR HEMOGLOBIN 29.3 pg (27.0-34.8); MEAN CORPUSCULAR HGB CONC 32.1 g/dL (32.4-35.8); MEAN CORPUSCULAR VOLUME 91.3 fL (80-100); MEAN PLATELET VOLUME 8.6 fL (7.4-10.4); PLATELET COUNT 265 x10^3/uL (130-400); RED CELL DISTRIBUTION WIDTH 18.6 % (9.6-15.2)
[2018-11-05 22:15] LABS: BASOPHILS # (AUTO) 0.05 x10^3/uL (0-0.1); BASOPHILS % (AUTO) 1 % (0-1); EOSINOPHILS # (AUTO) 0.25 x10^3/uL (0-0.4); EOSINOPHILS % (AUTO) 3 % (1-7); LYMPHOCYTES # (AUTO) 1.76 x10^3/uL (1-3.4); LYMPHOCYTES % (AUTO) 20 % (22-44); MD SCAN; MONOCYTES # (AUTO) 0.55 x10^3/uL (0.2-0.8); MONOCYTES % (AUTO) 6 % (2-9); NEUTROPHILS # (AUTO) 6.14 x10^3/uL (1.8-6.8); NEUTROPHILS % (AUTO) 70 % (42-75)
[2018-11-06] MEDS: PIPERACILLIN/TAZO/PMX 3.375GM 50 ML IV SCH ×4 (00:08→18:13)
[2018-11-06 01:49] VITALS: BP 104/63
[2018-11-06 05:32] LABS: MEAN CORPUSCULAR HGB CONC 32.9 g/dL (32.4-35.8); MEAN CORPUSCULAR VOLUME 91.1 fL (80-100); MEAN PLATELET VOLUME 8.3 fL (7.4-10.4); PLATELET COUNT 247 x10^3/uL (130-400); RED BLOOD COUNT 2.41 x10^6/uL (3.82-5.3); RED CELL DISTRIBUTION WIDTH 18.6 % (9.6-15.2)
[2018-11-06 06:00] LABS: BASOPHILS # (AUTO) 0.06 x10^3/uL (0-0.1); BASOPHILS % (AUTO) 1 % (0-1); EOSINOPHILS # (AUTO) 0.26 x10^3/uL (0-0.4); EOSINOPHILS % (AUTO) 3 % (1-7); LYMPHOCYTES # (AUTO) 1.72 x10^3/uL (1-3.4); LYMPHOCYTES % (AUTO) 23 % (22-44); MONOCYTES # (AUTO) 0.48 x10^3/uL (0.2-0.8); MONOCYTES % (AUTO) 6 % (2-9); NEUTROPHILS # (AUTO) 5.11 x10^3/uL (1.8-6.8); NEUTROPHILS % (AUTO) 67 % (42-75)
[2018-11-06] MEDS: LEVOTHYROXINE 125 MCG TABLET PO SCH (06:07)
[2018-11-06] MEDS: SUCRALFATE 1 GM/10 ML UDC PO SCH ×4 (06:08→20:13)
[2018-11-06] MEDS: OMEPRAZOLE 20 MG CAPSULE.DR PO SCH (06:08)
[2018-11-06 06:27] LABS: MD SCAN
[2018-11-06 07:25] VITALS: BP 109/71
[2018-11-06] MEDS: FUROSEMIDE 40 MG/4 ML IV SCH (08:38)
[2018-11-06] MEDS: FERROUS SULFATE 325 MG TABLET PO SCH ×3 (08:38→20:13)
[2018-11-06 09:07] LABS: % IRON SATURATION 16 % (20-55); IRON LEVEL 50 mcg/dL (50-170); TOTAL IRON BINDING CAPACITY 318 mcg/dL (250-450)
[2018-11-06] MEDS ORDERED: GOLYTELY 4,000ML ORAL.SOL PO ONE (12:00)
[2018-11-06 15:15] VITALS: BP 105/69
[2018-11-06 20:01] VITALS: BP 108/69
[2018-11-06] MEDS: ATORVASTATIN 20 MG TABLET PO SCH (20:13)
[2018-11-06] MEDS: TEMPLATE NON-FORMULARY MED. (Tadalafil** (Adcirca**) 40 MG) HOMEMEDPO SCH (20:13)
[2018-11-06] MEDS: TEMPLATE NON-FORMULARY MED. (Ambrisentan (Letairis**) 10 MG) HOMEMEDPO SCH (20:13)
[2018-11-07] VITALS (12 sets, daily range): BP systolic 86–109; BP diastolic 52–68
[2018-11-07] MEDS: PIPERACILLIN/TAZO/PMX 3.375GM 50 ML IV SCH ×4 (00:15→18:38)
[2018-11-07 05:49] LABS: MEAN CORPUSCULAR HEMOGLOBIN 30.1 pg (27.0-34.8); MEAN CORPUSCULAR HGB CONC 32.4 g/dL (32.4-35.8); MEAN CORPUSCULAR VOLUME 92.9 fL (80-100); MEAN PLATELET VOLUME 8.4 fL (7.4-10.4); PLATELET COUNT 254 x10^3/uL (130-400); RED BLOOD COUNT 2.34 x10^6/uL (3.82-5.3)
[2018-11-07 05:56] LABS: ANION GAP 7 mmol/L (5-15); CALCIUM 8.4 mg/dL (8.5-10.1); CHLORIDE 106 mmol/L (98-107); CREATININE 1.11 mg/dL (0.55-1.02)
[2018-11-07] MEDS: LEVOTHYROXINE 125 MCG TABLET PO SCH (06:00)
[2018-11-07] MEDS: OMEPRAZOLE 20 MG CAPSULE.DR PO SCH ×2 (06:00→18:37)
[2018-11-07 06:31] LABS: ANISOCYTOSIS 1+; BASOPHILS # (AUTO) 0.01 x10^3/uL (0-0.1); BASOPHILS % (AUTO) 0 % (0-1); EOSINOPHILS # (AUTO) 0.16 x10^3/uL (0-0.4); EOSINOPHILS % (AUTO) 2 % (1-7); LYMPHOCYTES # (AUTO) 1.77 x10^3/uL (1-3.4); LYMPHOCYTES % (AUTO) 24 % (22-44); MD MORPH REVIEW ONLY; MONOCYTES % (AUTO) 1 % (2-9); NEUTROPHILS # (AUTO) 5.44 x10^3/uL (1.8-6.8); NEUTROPHILS % (AUTO) 73 % (42-75)
[2018-11-07 06:32] LABS: POLYCHROMASIA 1+
[2018-11-07 06:33] LABS: <PLATELET ESTIMATE> ADEQUATE; <PLT MORPHOLOGY> NORMAL PLT MORPH
[2018-11-07] MEDS: SUCRALFATE 1 GM/10 ML UDC PO SCH ×4 (07:00→21:45)
[2018-11-07] MEDS ORDERED: PHENYLEPHRINE 10 MG/ML ONE (08:42)
[2018-11-07] MEDS ORDERED: PROPOFOL 10 MG/ML, 20ML ONE (08:42)
[2018-11-07] MEDS ORDERED: ONDANSETRON 2MG/ML, 2ML ONE (09:29)
[2018-11-07] MEDS ORDERED: ONDANSETRON 2MG/ML, 2ML IV PRN (09:30)
[2018-11-07] MEDS ORDERED: EPINEPHRINE SYRINGE 0.1 MG/ML, 10ML ONE (10:25)
[2018-11-07] MEDS: IRON SUCROSE COMPLEX 100MG/5ML IV SCH (12:40)
[2018-11-07] MEDS ORDERED: FUROSEMIDE 20 MG/2 ML IV ONE ×2 (16:00→17:30)
[2018-11-07] MEDS: TEMPLATE NON-FORMULARY MED. (Tadalafil** (Adcirca**) 40 MG) HOMEMEDPO SCH (21:45)
[2018-11-07] MEDS: TEMPLATE NON-FORMULARY MED. (Ambrisentan (Letairis**) 10 MG) HOMEMEDPO SCH (21:46)
[2018-11-07] MEDS: ATORVASTATIN 20 MG TABLET PO SCH (21:46)
[2018-11-08] MEDS: PIPERACILLIN/TAZO/PMX 3.375GM 50 ML IV SCH ×4 (00:35→18:28)
[2018-11-08 00:40] VITALS: BP 88/51
[2018-11-08 00:55] LABS: BASOPHILS # (AUTO) 0.08 x10^3/uL (0-0.1); BASOPHILS % (AUTO) 1 % (0-1); EOSINOPHILS # (AUTO) 0.16 x10^3/uL (0-0.4); EOSINOPHILS % (AUTO) 2 % (1-7); LYMPHOCYTES # (AUTO) 2.09 x10^3/uL (1-3.4); LYMPHOCYTES % (AUTO) 23 % (22-44); MD NO; MEAN CORPUSCULAR HEMOGLOBIN 29.6 pg (27.0-34.8); MEAN CORPUSCULAR HGB CONC 32.2 g/dL (32.4-35.8); MEAN CORPUSCULAR VOLUME 91.9 fL (80-100); MEAN PLATELET VOLUME 8.1 fL (7.4-10.4); MONOCYTES # (AUTO) 0.61 x10^3/uL (0.2-0.8); MONOCYTES % (AUTO) 7 % (2-9); NEUTROPHILS # (AUTO) 6.09 x10^3/uL (1.8-6.8); NEUTROPHILS % (AUTO) 67 % (42-75); PLATELET COUNT 257 x10^3/uL (130-400); RED BLOOD COUNT 2.81 x10^6/uL (3.82-5.3); RED CELL DISTRIBUTION WIDTH 18.4 % (9.6-15.2)
[2018-11-08 01:45] VITALS: BP 88/51
[2018-11-08] MEDS: LEVOTHYROXINE 125 MCG TABLET PO SCH (05:52)
[2018-11-08 06:13] LABS: BASOPHILS # (AUTO) 0.05 x10^3/uL (0-0.1); BASOPHILS % (AUTO) 1 % (0-1); EOSINOPHILS # (AUTO) 0.14 x10^3/uL (0-0.4); EOSINOPHILS % (AUTO) 2 % (1-7); LYMPHOCYTES # (AUTO) 1.86 x10^3/uL (1-3.4); LYMPHOCYTES % (AUTO) 25 % (22-44); MD NO; MEAN CORPUSCULAR HEMOGLOBIN 29.8 pg (27.0-34.8); MEAN CORPUSCULAR HGB CONC 32.6 g/dL (32.4-35.8); MEAN CORPUSCULAR VOLUME 91.4 fL (80-100); MEAN PLATELET VOLUME 8.2 fL (7.4-10.4); MONOCYTES # (AUTO) 0.47 x10^3/uL (0.2-0.8); MONOCYTES % (AUTO) 6 % (2-9); NEUTROPHILS # (AUTO) 5.01 x10^3/uL (1.8-6.8); NEUTROPHILS % (AUTO) 67 % (42-75); PLATELET COUNT 253 x10^3/uL (130-400); RED CELL DISTRIBUTION WIDTH 18.4 % (9.6-15.2)
[2018-11-08 06:17] LABS: ANION GAP 6 mmol/L (5-15); CALCIUM 8.6 mg/dL (8.5-10.1); CHLORIDE 109 mmol/L (98-107); CREATININE 1.19 mg/dL (0.55-1.02)
[2018-11-08] MEDS: OMEPRAZOLE 20 MG CAPSULE.DR PO SCH ×2 (08:07→15:31)
[2018-11-08] MEDS: SUCRALFATE 1 GM/10 ML UDC PO SCH ×4 (08:07→21:20)
[2018-11-08 08:15] VITALS: BP 99/62
[2018-11-08] MEDS ORDERED: POTASSIUM CHLORIDE 20 MEQ TAB.ER.PRT PO ONE (09:00)
[2018-11-08] MEDS: IRON SUCROSE COMPLEX 100MG/5ML IV SCH (12:31)
[2018-11-08 12:54] VITALS: BP 102/64
[2018-11-08 19:53] VITALS: BP 99/63
[2018-11-08] MEDS ORDERED: TADALAFIL 20 MG HOMEMEDPO SCH (21:00)
[2018-11-08] MEDS: TEMPLATE NON-FORMULARY MED. (Ambrisentan (Letairis**) 10 MG) HOMEMEDPO SCH (21:19)
[2018-11-08] MEDS: ATORVASTATIN 20 MG TABLET PO SCH (21:22)
[2018-11-09] MEDS: PIPERACILLIN/TAZO/PMX 3.375GM 50 ML IV SCH ×3 (00:03→12:14)
[2018-11-09 05:33] LABS: MEAN CORPUSCULAR VOLUME 93.7 fL (80-100); MEAN PLATELET VOLUME 9.3 fL (7.4-10.4); PLATELET COUNT 204 x10^3/uL (130-400); RED BLOOD COUNT 2.86 x10^6/uL (3.82-5.3); RED CELL DISTRIBUTION WIDTH 20.4 % (9.6-15.2)
[2018-11-09 05:35] LABS: CHLORIDE 113 mmol/L (98-107)
[2018-11-09 05:36] VITALS: BP 116/73
[2018-11-09] MEDS: LEVOTHYROXINE 125 MCG TABLET PO SCH (05:39)
[2018-11-09 05:45] LABS: CALCIUM 8.4 mg/dL (8.5-10.1)
[2018-11-09 06:03] LABS: BASOPHILS # (AUTO) 0.04 x10^3/uL (0-0.1); BASOPHILS % (AUTO) 1 % (0-1); EOSINOPHILS # (AUTO) 0.22 x10^3/uL (0-0.4); EOSINOPHILS % (AUTO) 3 % (1-7); LYMPHOCYTES % (AUTO) 18 % (22-44); MD SCAN; MONOCYTES # (AUTO) 0.41 x10^3/uL (0.2-0.8); MONOCYTES % (AUTO) 6 % (2-9); NEUTROPHILS # (AUTO) 5.15 x10^3/uL (1.8-6.8); NEUTROPHILS % (AUTO) 72 % (42-75)
[2018-11-09 06:22] LABS: ANION GAP 8 mmol/L (5-15)
[2018-11-09 07:29] VITALS: BP 116/75
[2018-11-09] MEDS: SUCRALFATE 1 GM/10 ML UDC PO SCH ×2 (08:46→12:14)
[2018-11-09] MEDS: OMEPRAZOLE 20 MG CAPSULE.DR PO SCH (08:46)
[2018-11-09] MEDS ORDERED: FERR325T5 PO (12:07)
[2018-11-09] MEDS ORDERED: CEFD300C37 PO (12:07)
[2018-11-09] MEDS ORDERED: TADA20TA33 PO (12:07)
[2018-11-09] MEDS: IRON SUCROSE COMPLEX 100MG/5ML IV SCH (12:14)
[2018-11-09 13:28] VITALS: BP 96/62
== END 2018-11-09 16:11 | disposition home or self-care (01) | DRG 871 ==
LOC: ED 09:41 → EDIP 12:33 → 5SO 15:53 → DCLOUNGE 11-09 15:58
PROVIDERS: ADMIT Hospitalist; ATTEND Hospitalist
PROC: 30233N1 Transfusion of Nonautologous Red Blood Cells into Peripheral Vein, Percutaneous Approach (ICD-10-PCS; principal; 2018-11-04)
PROC: 0DJ08ZZ Inspection of Upper Intestinal Tract, Via Natural or Artificial Opening Endoscopic (ICD-10-PCS; 2018-11-07)
PROC: 0DJD8ZZ Inspection of Lower Intestinal Tract, Via Natural or Artificial Opening Endoscopic (ICD-10-PCS; 2018-11-07)
DX: A41.9 Sepsis, unspecified organism (principal); J18.0 Bronchopneumonia, unspecified organism; J96.21 Acute and chronic respiratory failure with hypoxia; K31.82 Dieulafoy lesion (hemorrhagic) of stomach and duodenum; K26.4 Chronic or unspecified duodenal ulcer with hemorrhage; D62 Acute posthemorrhagic anemia; E03.9 Hypothyroidism, unspecified; E66.9 Obesity, unspecified; E78.5 Hyperlipidemia, unspecified; F15.90 Other stimulant use, unspecified, uncomplicated; N28.9 Disorder of kidney and ureter, unspecified; G89.29 Other chronic pain; I10 Essential (primary) hypertension; I27.21 Secondary pulmonary arterial hypertension; I73.00 Raynaud's syndrome without gangrene; I99.8 Other disorder of circulatory system; K57.30 Diverticulosis of large intestine without perforation or abscess without bleeding; K64.8 Other hemorrhoids; Z87.891 Personal history of nicotine dependence
CPT/HCPCS: 36415; 71045; 71275; 76700; 80048; 80053; 82607; 83540; 83550; 83605; 83735; 83880; 84145; 84484; 85014; 85018; 85025; 86850; 86900; 86923; 87040; 93005; 96374; G0378; J1756; J1940; J2405; J2543; J2704; Q9967; A4648; J2370; J7030; P9016

== ENCOUNTER 2019-12-20 07:24 | Emergency (ER) | payer MEDICAID ==
[~2019-12-20] VITALS: Ht 165.1 cm; Wt 93.9 kg
[~2019-12-20 07:24] MED LIST changes: +LISI1TAB19 PO; -LISI1TAB5 PO
[2019-12-20 07:29] VITALS: BP 179/83
== END 2019-12-20 09:10 | disposition home or self-care (01) ==
LOC: ED 08:41
DX: G89.29 Other chronic pain (principal); M25.532 Pain in left wrist; M25.531 Pain in right wrist; E78.5 Hyperlipidemia, unspecified; I10 Essential (primary) hypertension; Z86.39 Personal history of other endocrine, nutritional and metabolic disease; Z87.891 Personal history of nicotine dependence
CPT/HCPCS: 99283

== ENCOUNTER → 2020-01-17 | Outpatient (CLI) | payer MEDICAID | END | disposition home or self-care (01) | LOC: CFH 12:10 | PROVIDERS: ATTEND Internal Medicine Cardiovascular Disease | DX: I08.0 Rheumatic disorders of both mitral and aortic valves (principal); I27.20 Pulmonary hypertension, unspecified | CPT/HCPCS: 93306 ==

== ENCOUNTER 2020-02-02 17:49 | Inpatient (IN) | payer MEDICAID ==
[~2020-02-02] VITALS: Ht 165.1 cm; Wt 93.7 kg
[~2020-02-02 17:49] MED LIST changes: +FURO20TA3 PO; -LISI1TAB19 PO; +LISI1TAB39 PO; +TRAM50TA2 PO
[2020-02-02] MEDS ORDERED: PANTOPRAZOLE 80 MG in SODIUM CHLORIDE 0.9% 50 ML IVPB ONE (18:27)
[2020-02-02] MEDS ORDERED: PANTOPRAZOLE 80 MG in SODIUM CHLORIDE 0.9% 100 ML IV SCH ×2 (18:27→21:30)
[2020-02-02] MEDS ORDERED: SODIUM CHLORIDE 0.9%, 500ML IVBOLUS ONE (18:30)
[2020-02-02 18:49] LABS: MEAN CORPUSCULAR HEMOGLOBIN 26.1 pg (27.0-34.8); MEAN CORPUSCULAR HGB CONC 31.7 g/dL (32.4-35.8); MEAN CORPUSCULAR VOLUME 82.3 fL (80-100); MEAN PLATELET VOLUME 8.5 fL (7.4-10.4); PLATELET COUNT 431 x10^3/uL (130-400); RED BLOOD COUNT 2.59 x10^6/uL (3.82-5.3); RED CELL DISTRIBUTION WIDTH 19.4 % (9.6-15.2)
[2020-02-02 19:00] LABS: ALANINE AMINOTRANSFERASE 30 U/L (12-78); ALBUMIN 3.3 g/dL (3.4-5.0); ANION GAP 7 mmol/L (5-15); CALCIUM 8.5 mg/dL (8.5-10.1); CHLORIDE 107 mmol/L (98-107); CREATININE 1.13 mg/dL (0.55-1.02); PROTHROMBIN TIME 10.3 Seconds (9.6-11.5)
[2020-02-02 19:02] LABS: ALKALINE PHOSPHATASE 104 U/L (45-117); BILIRUBIN,TOTAL 0.2 mg/dL (0.2-1.0); TOTAL PROTEIN 6.9 g/dL (6.4-8.2)
[2020-02-02 19:39] LABS: BASOPHILS # (AUTO) 0.07 x10^3/uL (0-0.1); BASOPHILS % (AUTO) 1 % (0-1); EOSINOPHILS # (AUTO) 0.18 x10^3/uL (0-0.4); EOSINOPHILS % (AUTO) 1 % (1-7); LYMPHOCYTES # (AUTO) 2.56 x10^3/uL (1-3.4); LYMPHOCYTES % (AUTO) 20 % (22-44); MD SCAN; MONOCYTES # (AUTO) 0.74 x10^3/uL (0.2-0.8); MONOCYTES % (AUTO) 6 % (2-9); NEUTROPHILS # (AUTO) 9.28 x10^3/uL (1.8-6.8); NEUTROPHILS % (AUTO) 72 % (42-75)
[2020-02-02 19:54] VITALS: BP 109/43
[2020-02-02 20:13] VITALS: BP 107/52
[2020-02-02] MEDS ORDERED: LORazepam 2 MG/ML, 1ML ONE (20:19)
[2020-02-02 20:28] VITALS: BP 99/61
[2020-02-02] MEDS ORDERED: LORazepam 2 MG/ML, 1ML IVPush ONE (20:30)
--- NOTE | 2020-02-02 21:03 | NUR ---
REPORT GIVEN TO SELINA GALINDO.
[2020-02-02] MEDS ORDERED: LIDODERM 5% PATCH TD PRN (21:30)
[2020-02-02] MEDS ORDERED: ONDANSETRON 2MG/ML, 2ML IVPush PRN (21:30)
[2020-02-02] MEDS ORDERED: BISACODYL 10 MG SUPP PR PRN (21:30)
[2020-02-02] MEDS ORDERED: hydrALAzine 20 MG/ML, 1ML IVPush PRN (21:30)
[2020-02-02 21:36] VITALS: BP 145/81
[2020-02-02] MEDS ORDERED: FERR325T16 PO (21:48)
[2020-02-02] MEDS ORDERED: FLUT9.9S INH (22:09)
[2020-02-02 23:29] VITALS: BP 99/58
[2020-02-03] VITALS (12 sets, daily range): BP systolic 87–118; BP diastolic 51–77
[2020-02-03] MEDS: LORazepam 2 MG/ML, 1ML IVPush PRN (01:06)
[2020-02-03 06:29] LABS: BASOPHILS # (AUTO) 0.13 x10^3/uL (0-0.1); BASOPHILS % (AUTO) 1 % (0-1); EOSINOPHILS # (AUTO) 0.13 x10^3/uL (0-0.4); EOSINOPHILS % (AUTO) 1 % (1-7); LYMPHOCYTES # (AUTO) 2.57 x10^3/uL (1-3.4); LYMPHOCYTES % (AUTO) 19 % (22-44); MD SCAN; MEAN CORPUSCULAR HEMOGLOBIN 27.1 pg (27.0-34.8); MEAN CORPUSCULAR HGB CONC 32.2 g/dL (32.4-35.8); MEAN CORPUSCULAR VOLUME 84.2 fL (80-100); MEAN PLATELET VOLUME 8.8 fL (7.4-10.4); MONOCYTES % (AUTO) 5 % (2-9); NEUTROPHILS # (AUTO) 10.32 x10^3/uL (1.8-6.8); NEUTROPHILS % (AUTO) 75 % (42-75); PLATELET COUNT 306 x10^3/uL (130-400); RED BLOOD COUNT 2.84 x10^6/uL (3.82-5.3); RED CELL DISTRIBUTION WIDTH 18.4 % (9.6-15.2)
[2020-02-03] MEDS ORDERED: MIDAZOLAM 1 MG/ML, 5ML ONE (09:08)
[2020-02-03] MEDS ORDERED: FENTANYL PF 100 MCG/2ML ONE ×2 (09:08)
[2020-02-03] MEDS: LIDODERM REMOVE PATCH NOTE XX SCH (10:00)
[2020-02-03 13:31] LABS: ABSOLUTE RETICS # 0.119 x10^6/uL (0.5-2.5); RETICULOCYTE COUNT % 4.52 % (0.5-1.5)
[2020-02-03 13:33] LABS: RED BLOOD COUNT 2.64 x10^6/uL (3.82-5.3)
[2020-02-03] MEDS ORDERED: FUROSEMIDE 20 MG TABLET PO SCH (21:00)
[2020-02-03] MEDS ORDERED: TEMPLATE NON-FORMULARY MED. (Ambrisentan (Letairis**) 10 MG) PO SCH (21:00)
[2020-02-03] MEDS ORDERED: SPIRONOLACTONE 25 MG TABLET PO SCH (21:00)
[2020-02-03] MEDS: PANTOPRAZOLE 40 MG IV IVPush SCH (21:07)
[2020-02-03] MEDS: FLUTICASONE NASAL SPRAY 16GM NAS SCH (21:07)
[2020-02-04 00:21] VITALS: BP 126/73
[2020-02-04 02:35] VITALS: BP 143/73
[2020-02-04] MEDS: LORazepam 2 MG/ML, 1ML IVPush PRN (02:45)
[2020-02-04 04:27] LABS: BASOPHILS # (AUTO) 0.05 x10^3/uL (0-0.1); BASOPHILS % (AUTO) 0 % (0-1); EOSINOPHILS # (AUTO) 0.11 x10^3/uL (0-0.4); EOSINOPHILS % (AUTO) 1 % (1-7); LYMPHOCYTES # (AUTO) 1.94 x10^3/uL (1-3.4); LYMPHOCYTES % (AUTO) 18 % (22-44); MD NO; MEAN CORPUSCULAR HEMOGLOBIN 27.7 pg (27.0-34.8); MEAN CORPUSCULAR HGB CONC 32.1 g/dL (32.4-35.8); MEAN CORPUSCULAR VOLUME 86.3 fL (80-100); MEAN PLATELET VOLUME 8.9 fL (7.4-10.4); MONOCYTES % (AUTO) 5 % (2-9); NEUTROPHILS # (AUTO) 8.37 x10^3/uL (1.8-6.8); NEUTROPHILS % (AUTO) 76 % (42-75); PLATELET COUNT 318 x10^3/uL (130-400); RED BLOOD COUNT 2.98 x10^6/uL (3.82-5.3); RED CELL DISTRIBUTION WIDTH 17.5 % (9.6-15.2)
[2020-02-04 04:31] LABS: ANION GAP 6 mmol/L (5-15); CALCIUM 8.7 mg/dL (8.5-10.1); CHLORIDE 112 mmol/L (98-107); CREATININE 0.87 mg/dL (0.55-1.02)
[2020-02-04] MEDS ORDERED: LEVOTHYROXINE 125 MCG TABLET PO SCH (06:00)
[2020-02-04 07:13] VITALS: BP 126/76
[2020-02-04] MEDS: PANTOPRAZOLE 40 MG IV IVPush SCH (08:18)
[2020-02-04] MEDS: FLUTICASONE NASAL SPRAY 16GM NAS SCH (08:25)
[2020-02-04] MEDS ORDERED: PANT40TA6 PO (08:33)
[2020-02-04] MEDS ORDERED: TADALAFIL 20 MG PO SCH (09:00)
[2020-02-04] MEDS ORDERED: FERROUS GLUCONATE 324 MG TABLET PO SCH (09:00)
[2020-02-04] MEDS: LIDODERM REMOVE PATCH NOTE XX SCH (09:45)
== END 2020-02-04 10:11 | disposition home or self-care (01) | DRG 253 ==
LOC: ED 18:59 → EDIP 20:45 → 5SO 21:35 → DCLOUNGE 02-04 10:03
PROVIDERS: ADMIT Student in an Organized Health Care Education/Training Program; ATTEND Family Medicine
PROC: 30233N1 Transfusion of Nonautologous Red Blood Cells into Peripheral Vein, Percutaneous Approach (ICD-10-PCS; 2020-02-02)
PROC: 0DJ08ZZ Inspection of Upper Intestinal Tract, Via Natural or Artificial Opening Endoscopic (ICD-10-PCS; principal; 2020-02-03 09:00)
DX: K92.2 Gastrointestinal hemorrhage, unspecified (principal); D62 Acute posthemorrhagic anemia; D50.9 Iron deficiency anemia, unspecified; E03.9 Hypothyroidism, unspecified; E78.5 Hyperlipidemia, unspecified; F17.200 Nicotine dependence, unspecified, uncomplicated; F41.1 Generalized anxiety disorder; I11.9 Hypertensive heart disease without heart failure; I27.21 Secondary pulmonary arterial hypertension; J44.9 Chronic obstructive pulmonary disease, unspecified; J96.10 Chronic respiratory failure, unspecified whether with hypoxia or hypercapnia; N17.9 Acute kidney failure, unspecified; Z79.899 Other long term (current) drug therapy; Z84.89 Family history of other specified conditions
CPT/HCPCS: 36415; 80048; 80053; 82728; 85014; 85018; 85025; 85045; 85610; 85730; 86850; 86900; 86923; 93005; 99152; 99153; G0378; J2250; J3010; C9113; J2060; P9016

== ENCOUNTER 2020-02-12 16:49 | Emergency (ER) | payer MEDICAID ==
[~2020-02-12] VITALS: Ht 152.4 cm; Wt 91.9 kg
[~2020-02-12 16:49] MED LIST changes: +FERR325T16 PO; +FLUT9.9S INH; +PANT40TA6 PO
--- NOTE | 2020-02-12 17:40 | NUR ---
PT HERE FOR POSSIBLE GI BLEED.
--- NOTE | 2020-02-12 17:50 | NUR ---
PT REPORT TO BREAK RN; PT CARE TRANSFERRED.
[2020-02-12 18:04] LABS: BASOPHILS # (AUTO) 0.01 x10^3/uL (0-0.1); BASOPHILS % (AUTO) 0 % (0-1); EOSINOPHILS # (AUTO) 0.16 x10^3/uL (0-0.4); EOSINOPHILS % (AUTO) 2 % (1-7); LYMPHOCYTES # (AUTO) 1.69 x10^3/uL (1-3.4); LYMPHOCYTES % (AUTO) 17 % (22-44); MD NO; MEAN CORPUSCULAR HEMOGLOBIN 27.4 pg (27.0-34.8); MEAN CORPUSCULAR HGB CONC 31.4 g/dL (32.4-35.8); MEAN CORPUSCULAR VOLUME 87.2 fL (80-100); MEAN PLATELET VOLUME 8.8 fL (7.4-10.4); MONOCYTES # (AUTO) 0.47 x10^3/uL (0.2-0.8); MONOCYTES % (AUTO) 5 % (2-9); NEUTROPHILS # (AUTO) 7.84 x10^3/uL (1.8-6.8); NEUTROPHILS % (AUTO) 77 % (42-75); PLATELET COUNT 360 x10^3/uL (130-400); RED BLOOD COUNT 2.98 x10^6/uL (3.82-5.3); RED CELL DISTRIBUTION WIDTH 19.2 % (9.6-15.2)
[2020-02-12 18:05] LABS: ANION GAP 5 mmol/L (5-15); CALCIUM 9.3 mg/dL (8.5-10.1); CHLORIDE 106 mmol/L (98-107); CREATININE 1.52 mg/dL (0.55-1.02)
--- NOTE | 2020-02-12 18:24 | NUR ---
BREAK RN: ALL RESULTS BACK, PATIENT UP FOR RECHECK. PATIENT RESTING IN GURNEY, RESPIRATIONS EVEN AND UNLABORED. CALL LIGHT IN REACH
--- NOTE | 2020-02-12 18:27 | NUR ---
AMBULATORY TO & FROM [facility] W/OUT INCIDENT; GAIT QUICK AND STEADY.
[2020-02-12] MEDS ORDERED: SODIUM CHLORIDE 0.9% 1,000ML IVBOLUS ONE (18:30)
--- NOTE | 2020-02-12 20:02 | NUR ---
PT AMBULATORY TO & FROM [facility] W/OUT INCIDENT; GAIT STEADY.
[2020-02-12 20:11] VITALS: BP 139/62
== END 2020-02-12 20:13 | disposition home or self-care (01) ==
LOC: ED 19:50
DX: E86.0 Dehydration (principal); D64.9 Anemia, unspecified; N17.9 Acute kidney failure, unspecified; K92.1 Melena
CPT/HCPCS: 36415; 80048; 85025; 96360; 99283; J7030

== ENCOUNTER 2020-02-20 11:49 | Inpatient (IN) | payer MEDICAID ==
[~2020-02-20] VITALS: Ht 165.1 cm; Wt 93.0 kg
[2020-02-20] VITALS (13 sets, daily range): BP systolic 105–133; BP diastolic 47–82
--- NOTE | 2020-02-20 12:15 | NUR ---
59 Y/O FEMALE PRESENTS TO ED WITH C/O GIB. PER PT "I HAVE BEEN DIAGNOSED WITH A GI BLEED FOR ABOUT A MONTH. I'VE BEEN IN AND OUT OF THE HOSPITAL FOR A MONTH. THIS MORNING I HAD SOME BLACK DIARRHEA." NO C/O N/V, TRAUMA, SYNCOPE, CP, SOB. PT PLACED ON CONT PULSE OX,NIBP, ADULT BASIC EDUCATION MANAGER.
[2020-02-20] MEDS ORDERED: SODIUM CHLORIDE 0.9% 1,000ML IVBOLUS ONE (12:30)
[2020-02-20] MEDS ORDERED: SODIUM CHLORIDE FLUSH 10ML SYR IVF ONE (12:30)
--- NOTE | 2020-02-20 12:53 | NUR ---
REPORT FROM LUIS MIGUEL, ASSUME CARE OF PT AT THIS TIME.
--- NOTE | 2020-02-20 12:53 | NUR ---
bedside report to richard Diaz
[2020-02-20 13:06] LABS: ALBUMIN 3.3 g/dL (3.4-5.0); ANION GAP 8 mmol/L (5-15); CHLORIDE 111 mmol/L (98-107); CREATININE 0.94 mg/dL (0.55-1.02)
[2020-02-20 13:09] LABS: ALANINE AMINOTRANSFERASE 23 U/L (12-78); ALKALINE PHOSPHATASE 102 U/L (45-117); BILIRUBIN,TOTAL 0.3 mg/dL (0.2-1.0); TOTAL PROTEIN 6.8 g/dL (6.4-8.2)
[2020-02-20 13:39] LABS: MEAN CORPUSCULAR HEMOGLOBIN 27.2 pg (27.0-34.8); MEAN CORPUSCULAR HGB CONC 31.6 g/dL (32.4-35.8); MEAN PLATELET VOLUME 8.6 fL (7.4-10.4); PLATELET COUNT 259 x10^3/uL (130-400); RED BLOOD COUNT 2.12 x10^6/uL (3.82-5.3); RED CELL DISTRIBUTION WIDTH 18.8 % (9.6-15.2)
[2020-02-20 13:46] LABS: MD YES
[2020-02-20 13:52] LABS: <PLATELET ESTIMATE> ADEQUATE; <PLT MORPHOLOGY> NORMAL PLT MORPH; ANISOCYTOSIS 1+; HYPOCHROMIA 1+; LYMPH#(MANUAL) 1.32 x10^3/uL (1-3.4); LYMPHS% (MANUAL) 15 % (22-44); MONOS#(MANUAL) 0.18 x10^3/uL (0.3-2.7); MONOS% (MANUAL) 2 % (2-9); POLYCHROMASIA 1+; SEGS% (MANUAL) 83 % (42-75)
--- NOTE | 2020-02-20 14:32 | NUR ---
report received from dimitri ramos.
--- NOTE | 2020-02-20 14:56 | NUR ---
BLOOD TRANSFUSION STARTED AT THIS TIME.
[2020-02-20] MEDS ORDERED: hydrALAzine 20 MG/ML, 1ML IVPush PRN (15:30)
[2020-02-20] MEDS ORDERED: ONDANSETRON 2MG/ML, 2ML IVPush PRN (15:30)
[2020-02-20] MEDS ORDERED: BISACODYL 10 MG SUPP PR PRN (15:30)
[2020-02-20] MEDS ORDERED: ENALAPRILAT 1.25 MG/ML, 2ML IVPush PRN (15:30)
[2020-02-20] MEDS ORDERED: PANTOPRAZOLE 80 MG in SODIUM CHLORIDE 0.9% 50 ML IV ONE (15:30)
[2020-02-20] MEDS ORDERED: ACETAMINOPHEN 325 MG TABLET PO PRN (15:30)
[2020-02-20] MEDS ORDERED: DOCUSATE 100 MG CAPSULE PO PRN (15:30)
[2020-02-20] MEDS ORDERED: ONDANSETRON ODT 4 MG PO PRN (15:30)
[2020-02-20] MEDS ORDERED: POLYETHYLENE GLYCOL 17 GM PACKET PO PRN (15:30)
--- NOTE | 2020-02-20 15:44 | NUR ---
pt still blood transfusing at this time. pt denies any reactions. pt's aox4. resps even and unlabored.
--- NOTE | 2020-02-20 16:15 | NUR ---
medications ordered from pharmacy at this time.
--- NOTE | 2020-02-20 16:44 | NUR ---
pt amb to br and back to room with steady gait. pt's aox4. resps even and unlabored. denies any reactions from blood transfusion.
[2020-02-20] MEDS: D5%-0.45% NACL 1,000 ML IV SCH (16:54)
--- NOTE | 2020-02-20 16:59 | NUR ---
d5w infusing at this time. pt tolerated well. pt's aox4. resps even and unlabored.
--- NOTE | 2020-02-20 17:54 | NUR ---
pt resting in [facility]. pt's aox4. resps even and unlabored.
--- NOTE | 2020-02-20 18:04 | NUR ---
REPORT GIVEN TO MICHAEL GALINDO. ALL QUESTIONS ANSWERED.
[2020-02-20] MEDS: TEMPLATE NON-FORMULARY MED. (Ambrisentan (Letairis**) 10 MG) HOMEMEDPO SCH (20:23)
[2020-02-20] MEDS: IRON SUCROSE COMPLEX 100MG/5ML IV SCH (20:33)
[2020-02-20] MEDS: PANTOPRAZOLE 80 MG in SODIUM CHLORIDE 0.9% 100 ML IV SCH (20:45)
[2020-02-21] VITALS (7 sets, daily range): BP systolic 96–125; BP diastolic 52–80
[2020-02-21] MEDS: LEVOTHYROXINE 125 MCG TABLET PO SCH (05:27)
[2020-02-21] MEDS ORDERED: BUPIVACAINE/PF 0.5% ONE (06:14)
[2020-02-21] MEDS ORDERED: BUPIVACAINE 0.25% ONE (06:14)
[2020-02-21] MEDS ORDERED: VANCOMYCIN 1,000 MG ONE (06:14)
[2020-02-21] MEDS ORDERED: BACITRACIN 50,000 UNIT ONE (06:15)
[2020-02-21] MEDS ORDERED: EPINEPHRINE 1 MG/ML, 1ML ONE (06:15)
[2020-02-21 06:16] LABS: CHLORIDE 112 mmol/L (98-107)
[2020-02-21 06:24] LABS: ANION GAP 7 mmol/L (5-15); CALCIUM 8.7 mg/dL (8.5-10.1); CREATININE 0.87 mg/dL (0.55-1.02)
[2020-02-21 06:32] LABS: BASOPHILS % (AUTO) 0 % (0-1); EOSINOPHILS % (AUTO) 1 % (1-7); LYMPHOCYTES # (AUTO) 1.56 x10^3/uL (1-3.4); LYMPHOCYTES % (AUTO) 21 % (22-44); MD NO; MEAN CORPUSCULAR HEMOGLOBIN 27.5 pg (27.0-34.8); MEAN CORPUSCULAR HGB CONC 31.5 g/dL (32.4-35.8); MONOCYTES # (AUTO) 0.48 x10^3/uL (0.2-0.8); MONOCYTES % (AUTO) 7 % (2-9); NEUTROPHILS # (AUTO) 5.23 x10^3/uL (1.8-6.8); NEUTROPHILS % (AUTO) 71 % (42-75); PLATELET COUNT 221 x10^3/uL (130-400); RED BLOOD COUNT 2.85 x10^6/uL (3.82-5.3)
[2020-02-21] MEDS: PANTOPRAZOLE 80 MG in SODIUM CHLORIDE 0.9% 100 ML IV SCH ×2 (07:45→18:41)
[2020-02-21] MEDS: IRON SUCROSE COMPLEX 100MG/5ML IV SCH (07:45)
[2020-02-21] MEDS ORDERED: TADALAFIL 20 MG PO SCH ×2 (09:00)
[2020-02-21] MEDS ORDERED: ROCURONIUM 10MG/ML,5ML ONE (10:18)
[2020-02-21] MEDS ORDERED: SUGAMMADEX 200 MG/2 ML IVPush ONE ×2 (10:18→15:26)
[2020-02-21] MEDS ORDERED: PROPOFOL 10 MG/ML, 20ML ONE (10:18)
[2020-02-21] MEDS ORDERED: CHLORHEXIDINE 15 ML UDC MM ONE (14:00)
[2020-02-21] MEDS ORDERED: CHLORHEXIDINE 15 ML UDC ONE (14:01)
[2020-02-21] MEDS ORDERED: MIDAZOLAM 1 MG/ML, 2ML ONE (14:19)
[2020-02-21] MEDS ORDERED: FENTANYL PF 250 MCG/5ML ONE (14:20)
[2020-02-21] MEDS ORDERED: DEXAMETHASONE 4 MG/ML, 1ML ONE (14:20)
[2020-02-21] MEDS ORDERED: VASOPRESSIN 20 UNIT/ML, 1ML ONE (14:49)
[2020-02-21] MEDS ORDERED: ONDANSETRON 2MG/ML, 2ML ONE (16:19)
[2020-02-21] MEDS ORDERED: EPINEPHRINE SYRINGE 0.1 MG/ML, 10ML ONE (16:24)
[2020-02-21] MEDS ORDERED: FENTANYL PF 100 MCG/2ML ONE (16:31)
[2020-02-21] MEDS: D5%-0.45% NACL 1,000 ML IV SCH (18:41)
[2020-02-21] MEDS: TEMPLATE NON-FORMULARY MED. (Ambrisentan (Letairis**) 10 MG) HOMEMEDPO SCH (21:12)
[2020-02-22] VITALS (9 sets, daily range): BP systolic 84–118; BP diastolic 54–71
[2020-02-22] MEDS: PANTOPRAZOLE 80 MG in SODIUM CHLORIDE 0.9% 100 ML IV SCH (04:06)
[2020-02-22] MEDS: LEVOTHYROXINE 125 MCG TABLET PO SCH (05:20)
[2020-02-22 07:12] LABS: BASOPHILS # (AUTO) 0.01 x10^3/uL (0-0.1); BASOPHILS % (AUTO) 0 % (0-1); EOSINOPHILS # (AUTO) 0.01 x10^3/uL (0-0.4); EOSINOPHILS % (AUTO) 0 % (1-7); LYMPHOCYTES # (AUTO) 1.65 x10^3/uL (1-3.4); LYMPHOCYTES % (AUTO) 17 % (22-44); MD NO; MEAN CORPUSCULAR HEMOGLOBIN 28.3 pg (27.0-34.8); MEAN CORPUSCULAR HGB CONC 31.7 g/dL (32.4-35.8); MEAN PLATELET VOLUME 8.8 fL (7.4-10.4); MONOCYTES # (AUTO) 0.27 x10^3/uL (0.2-0.8); MONOCYTES % (AUTO) 3 % (2-9); NEUTROPHILS # (AUTO) 7.84 x10^3/uL (1.8-6.8); NEUTROPHILS % (AUTO) 80 % (42-75); PLATELET COUNT 220 x10^3/uL (130-400); RED BLOOD COUNT 2.98 x10^6/uL (3.82-5.3); RED CELL DISTRIBUTION WIDTH 16.4 % (9.6-15.2)
[2020-02-22 07:15] LABS: ANION GAP 7 mmol/L (5-15); CALCIUM 8.7 mg/dL (8.5-10.1); CHLORIDE 113 mmol/L (98-107); CREATININE 0.94 mg/dL (0.55-1.02)
[2020-02-22] MEDS: IRON SUCROSE COMPLEX 100MG/5ML IV SCH (08:51)
[2020-02-22] MEDS ORDERED: PANT40TA6 PO (13:56)
== END 2020-02-22 14:53 | disposition home or self-care (01) | DRG 253 ==
LOC: ED 12:50 → EDIP 14:35 → 4WST 18:14
PROVIDERS: ADMIT Family Medicine; ATTEND Family Medicine
PROC: 30233N1 Transfusion of Nonautologous Red Blood Cells into Peripheral Vein, Percutaneous Approach (ICD-10-PCS; principal; 2020-02-20)
PROC: 0W3P8ZZ Control Bleeding in Gastrointestinal Tract, Via Natural or Artificial Opening Endoscopic (ICD-10-PCS; 2020-02-21)
DX: K55.21 Angiodysplasia of colon with hemorrhage (principal); F17.210 Nicotine dependence, cigarettes, uncomplicated; E78.5 Hyperlipidemia, unspecified; E03.9 Hypothyroidism, unspecified; D62 Acute posthemorrhagic anemia; I11.9 Hypertensive heart disease without heart failure; G25.81 Restless legs syndrome; J96.11 Chronic respiratory failure with hypoxia; J44.9 Chronic obstructive pulmonary disease, unspecified; I27.21 Secondary pulmonary arterial hypertension; Z20.828 Contact with and (suspected) exposure to other viral communicable diseases
CPT/HCPCS: 36415; 36430; 80048; 80053; 85014; 85018; 85025; 86850; 86900; 86923; 87635; 93005; 99291; G0378; J0171; J1100; J1756; J2250; J2405; J2704; J3010; J3370; J3490; A4648; C9113; J7030; P9016

== ENCOUNTER 2020-08-02 02:18 | Inpatient (IN) | payer MEDICAID ==
[~2020-08-02] VITALS: Ht 165.1 cm; Wt 99.3 kg
[2020-08-02] VITALS (19 sets, daily range): BP systolic 84–145; BP diastolic 44–74
[2020-08-02 02:54] LABS: BASOPHILS % (AUTO) 1 % (0-1); EOSINOPHILS % (AUTO) 1 % (1-7); LYMPHOCYTES % (AUTO) 18 % (22-44); MEAN CORPUSCULAR HEMOGLOBIN 23.9 pg (27.0-34.8); MEAN CORPUSCULAR HGB CONC 31.7 g/dL (32.4-35.8); MEAN PLATELET VOLUME 8.6 fL (7.4-10.4); MONOCYTES % (AUTO) 6 % (2-9); NEUTROPHILS % (AUTO) 74 % (42-75); PLATELET COUNT 286 x10^3/uL (130-400); RED BLOOD COUNT 2.56 x10^6/uL (3.82-5.3); RED CELL DISTRIBUTION WIDTH 19.8 % (9.6-15.2)
[2020-08-02 03:04] LABS: ALANINE AMINOTRANSFERASE 29 U/L (12-78); ALBUMIN 3.7 g/dL (3.4-5.0); ANION GAP 7 mmol/L (5-15); CALCIUM 8.5 mg/dL (8.5-10.1); CHLORIDE 110 mmol/L (98-107); CREATININE 0.99 mg/dL (0.55-1.02)
[2020-08-02 03:08] LABS: ALKALINE PHOSPHATASE 186 U/L (45-117); BILIRUBIN,TOTAL 0.3 mg/dL (0.2-1.0); TOTAL PROTEIN 7.5 g/dL (6.4-8.2); TROPONIN I 0.017 ng/mL (0.000-0.045)
[2020-08-02 03:17] LABS: MD MORPH REVIEW ONLY
[2020-08-02 03:18] LABS: POLYCHROMASIA 1+
[2020-08-02 03:19] LABS: ANISOCYTOSIS 2+; HYPOCHROMIA 1+; MICROCYTOSIS 2+; OVALOCYTES 1+
[2020-08-02 03:20] LABS: BASOPHILLIC STIPPLING 1+; SCHISTOCYTES 1+
[2020-08-02 03:21] LABS: <PLATELET ESTIMATE> ADEQUATE; <PLT MORPHOLOGY> NORMAL PLT MORPH
--- NOTE | 2020-08-02 03:23 | NUR ---
PT CAME IN TO ER AND IN WHEELCHAIR WHEN TRIAGED. AT TRIAGE PT HAD A LOT OF PAIN THAT SHE NOTED WAS LEFT CHEST AND HER BACK WELL. DENIED CARDIAC ISSUES. PT STATES SHE MAY BE HAVING A GALL BLADDER ATTACK. PT PLACED ON O2 SAT AND BP MONITOR FOR NOW, AT BEDSIDE. EKG DONE IN TRIAGE.
--- NOTE | 2020-08-02 03:29 | NUR ---
PT STATES SHE HAS HISTORY OF PULMONARY HTN, THYROIDECTOMY, GI BLEED.
[2020-08-02] MEDS ORDERED: ONDANSETRON 2MG/ML, 2ML IVPush PRN (04:00)
[2020-08-02] MEDS ORDERED: ACETAMINOPHEN 325 MG TABLET PO PRN (04:00)
[2020-08-02] MEDS ORDERED: morphine SULFATE 10 MG/ML, 1ML IVPush PRN (04:00)
[2020-08-02] MEDS ORDERED: NITROGLYCERIN 0.4 MG/SPRAY SL PRN (04:00)
[2020-08-02] MEDS ORDERED: NITROGLYCERIN 0.4 MG BOTTLE (25 TABS) SL PRN (04:00)
--- NOTE | 2020-08-02 04:25 | NUR ---
TASK RN: BLOOD TRANSFUSION [facility]. PATIENT VERBALIZED UNDERSTANDING OF TRANSFUSION AND PLAN OF CARE.
--- NOTE | 2020-08-02 04:41 | NUR ---
Blood consent signed, risks and benefits explained to patient. Pt states understanding. Pt A&O x 3. Pt with non-labored breathing while in bed. Blood started. Will monitor.
--- NOTE | 2020-08-02 05:04 | NUR ---
Pt with no changes. Tolerating transfusion well. Denies SOB or CP. VSS. No apprent reaction. Will continue to monitor.
[2020-08-02 05:26] LABS: FREE T4 (FREE THYROXINE) 1.12 ng/dL (0.76-1.46)
--- NOTE | 2020-08-02 05:51 | NUR ---
TASK RN: PATIENT COMPLETED FIRST UNIT OF BLOOD TRANFUSION. PATIENT TOLERATED WELL. VITAL SIGNS STABLE. NO NOTED ACUTE DISTRESS. PATIENT DENIES ANY COMPLICATIONS R/T BLOOD TRANSFUSION. PRIMARY RN AWARE
[2020-08-02] MEDS: LEVOTHYROXINE 137 MCG TABLET PO SCH (05:52)
[2020-08-02] MEDS ORDERED: LEVOTHYROXINE 125 MCG TABLET PO SCH (06:00)
--- NOTE | 2020-08-02 06:13 | NUR ---
Report to Jey. PRBC complete with no issues. Jey aware of need for repeat trop. Pt to floor, A&O, RA, with stable VS.
[2020-08-02 06:54] LABS: TROPONIN I 0.029 ng/mL (0.000-0.045)
[2020-08-02] MEDS: PANTOPRAZOLE 40 MG IV IVPush SCH ×2 (08:28→21:38)
[2020-08-02] MEDS: HYDROcodone/APAP 5/325 TABLET PO PRN ×2 (09:37→19:01)
[2020-08-02] MEDS ORDERED: ACETAMINOPHEN 325 MG TABLET PO ONE (11:30)
[2020-08-02] MEDS ORDERED: DIPHENHYDRAMINE 12.5MG/5ML, 10ML UDC PO ONE (11:30)
[2020-08-02 12:43] LABS: TROPONIN I 0.021 ng/mL (0.000-0.045)
[2020-08-02] MEDS ORDERED: AMBRISENTAN 10 MG HOMEMEDPO SCH (21:00)
[2020-08-02] MEDS: SPIRONOLACTONE 25 MG TABLET PO SCH (21:00)
[2020-08-02] MEDS: FUROSEMIDE 20 MG TABLET PO SCH (21:00)
[2020-08-03 02:00] VITALS: BP 94/61
[2020-08-03] MEDS: LEVOTHYROXINE 137 MCG TABLET PO SCH (04:41)
[2020-08-03 05:27] LABS: BASOPHILS % (AUTO) 1 % (0-1); EOSINOPHILS % (AUTO) 1 % (1-7); LYMPHOCYTES % (AUTO) 18 % (22-44); MEAN CORPUSCULAR HEMOGLOBIN 27.2 pg (27.0-34.8); MEAN CORPUSCULAR HGB CONC 33.5 g/dL (32.4-35.8); MONOCYTES % (AUTO) 7 % (2-9); NEUTROPHILS % (AUTO) 74 % (42-75); PLATELET COUNT 189 x10^3/uL (130-400); RED BLOOD COUNT 3.31 x10^6/uL (3.82-5.3); RED CELL DISTRIBUTION WIDTH 20.1 % (9.6-15.2)
[2020-08-03 05:34] LABS: MD NO
[2020-08-03 05:37] LABS: ALBUMIN 3.3 g/dL (3.4-5.0); ANION GAP 6 mmol/L (5-15); CALCIUM 8.8 mg/dL (8.5-10.1); CHLORIDE 111 mmol/L (98-107)
[2020-08-03 05:42] LABS: ALANINE AMINOTRANSFERASE 21 U/L (12-78); ALKALINE PHOSPHATASE 152 U/L (45-117); BILIRUBIN,TOTAL 0.6 mg/dL (0.2-1.0); CHOL/HDL RATIO 3.6; CHOLESTEROL, TOTAL 199 mg/dL (140-239); CREATININE 0.97 mg/dL (0.55-1.02); HDL CHOL % 28 % (28-40); HDL CHOLESTEROL (DIRECT) 55 mg/dL (40-60); LDL CHOLESTEROL,CALCULATED 132 mg/dL (54-169); LDL/HDL RATIO 2.4 (0.5-3.0); TOTAL PROTEIN 6.6 g/dL (6.4-8.2); TRIGLYCERIDES 62 mg/dL (50-200); VLDL CHOLESTEROL 12 mg/dL (0-25)
[2020-08-03] MEDS: TADALAFIL 20 MG HOMEMEDPO SCH (07:51)
[2020-08-03] MEDS: PANTOPRAZOLE 40 MG IV IVPush SCH (07:52)
[2020-08-03] MEDS ORDERED: TEMPLATE NON-FORMULARY MED. (Ambrisentan (Letairis**) 10 MG) HOMEMEDPO SCH (08:00)
[2020-08-03] MEDS ORDERED: [UNRECOGNIZED DRUG - OTHER] MC SCH (08:00)
[2020-08-03 08:02] VITALS: BP 112/67
[2020-08-03] MEDS ORDERED: IRON SUCROSE COMPLEX 500 MG in SODIUM CHLORIDE 0.9% 250 ML IV ONE (08:30)
[2020-08-03] MEDS: TEMPLATE NON-FORMULARY MED. (Ambrisentan (Letairis**) 10 MG) HOMEMEDPO SCH (09:00)
[2020-08-03 13:47] VITALS: BP 100/63
[2020-08-03 16:28] LABS: OCCULT BLOOD NEGATIVE (NEGATIVE)
[2020-08-03] MEDS: SPIRONOLACTONE 25 MG TABLET PO SCH (20:44)
[2020-08-03 20:55] VITALS: BP 112/67
[2020-08-03] MEDS: FUROSEMIDE 20 MG TABLET PO SCH (21:00)
[2020-08-04 00:49] VITALS: BP 111/70
[2020-08-04] MEDS: LEVOTHYROXINE 137 MCG TABLET PO SCH (05:09)
[2020-08-04 05:45] LABS: BASOPHILS % (AUTO) 1 % (0-1); EOSINOPHILS % (AUTO) 1 % (1-7); LYMPHOCYTES % (AUTO) 14 % (22-44); MEAN CORPUSCULAR HEMOGLOBIN 26.3 pg (27.0-34.8); MEAN CORPUSCULAR HGB CONC 32.9 g/dL (32.4-35.8); MONOCYTES % (AUTO) 8 % (2-9); NEUTROPHILS % (AUTO) 77 % (42-75); PLATELET COUNT 219 x10^3/uL (130-400); RED BLOOD COUNT 3.38 x10^6/uL (3.82-5.3); RED CELL DISTRIBUTION WIDTH 21.2 % (9.6-15.2)
[2020-08-04 05:46] LABS: MD NO
[2020-08-04 05:58] LABS: ANION GAP 8 mmol/L (5-15); CALCIUM 8.5 mg/dL (8.5-10.1); CHLORIDE 109 mmol/L (98-107); CREATININE 0.85 mg/dL (0.55-1.02)
[2020-08-04 07:45] VITALS: BP 126/78
[2020-08-04] MEDS: TADALAFIL 20 MG HOMEMEDPO SCH (09:20)
[2020-08-04] MEDS: TEMPLATE NON-FORMULARY MED. (Ambrisentan (Letairis**) 10 MG) HOMEMEDPO SCH (09:20)
[2020-08-04] MEDS ORDERED: LEVO137T2 PO (10:38)
[2020-08-04] MEDS ORDERED: CLON1TAB11 PO (10:38)
[2020-08-04] MEDS ORDERED: FERR325T16 PO (10:38)
== END 2020-08-04 12:00 | disposition home or self-care (01) | DRG 663 ==
LOC: ED 04:02 → EDIP 04:24 → 5SO 06:14 → DCLOUNGE 08-04 11:54
PROVIDERS: ADMIT Internal Medicine; ATTEND Internal Medicine
PROC: 30233N1 Transfusion of Nonautologous Red Blood Cells into Peripheral Vein, Percutaneous Approach (ICD-10-PCS; principal; 2020-08-02)
DX: D50.9 Iron deficiency anemia, unspecified (principal); E03.9 Hypothyroidism, unspecified; E78.5 Hyperlipidemia, unspecified; F17.210 Nicotine dependence, cigarettes, uncomplicated; G25.81 Restless legs syndrome; I11.0 Hypertensive heart disease with heart failure; I24.9 Acute ischemic heart disease, unspecified; I27.21 Secondary pulmonary arterial hypertension; I50.9 Heart failure, unspecified; J44.9 Chronic obstructive pulmonary disease, unspecified; J96.11 Chronic respiratory failure with hypoxia; Z79.890 Hormone replacement therapy
CPT/HCPCS: 36415; 71045; 80048; 80053; 80061; 82272; 82728; 83540; 83550; 83690; 83735; 84100; 84439; 84443; 84484; 85014; 85018; 85025; 86850; 86900; 86923; 93005; 99291; G0378; J1756; C9113; J7050; P9016

== ENCOUNTER 2021-01-15 19:35 | Inpatient (IN) | payer MEDICAID ==
[~2021-01-15] VITALS: Ht 160 cm; Wt 94.3 kg
[~2021-01-15 19:35] MED LIST changes: +FERR324T23 PO; -FERR325T16 PO; +LEVO137T2 PO
--- NOTE | 2021-01-15 22:30 | NUR ---
Task RN: IV established and labs drawn.
--- NOTE | 2021-01-15 22:31 | NUR ---
Patient reports she was at her primary doctor this AM for labs and they instucted her to come to the ED for a hgb of 6.4. Patient states she has chronic anemia and has recieved "27 transfusions" in the past, most recent being in July of 2020. Patient states when her hgb is this low her back, shoulders, and arms start to hurt.
[2021-01-15 22:41] LABS: BASOPHILS % (AUTO) 1 % (0-1); EOSINOPHILS % (AUTO) 1 % (1-7); LYMPHOCYTES % (AUTO) 24 % (22-44); MEAN CORPUSCULAR HEMOGLOBIN 31.8 pg (27.0-34.8); MEAN CORPUSCULAR HGB CONC 33.3 g/dL (32.4-35.8); MEAN PLATELET VOLUME 8.8 fL (7.4-10.4); MONOCYTES % (AUTO) 7 % (2-9); NEUTROPHILS % (AUTO) 68 % (42-75); PLATELET COUNT 234 x10^3/uL (130-400); RED BLOOD COUNT 1.81 x10^6/uL (3.82-5.3); RED CELL DISTRIBUTION WIDTH 19.5 % (9.6-15.2)
--- NOTE | 2021-01-15 22:45 | NUR ---
notified of H/H of 5.8/17.3
[2021-01-15 22:48] LABS: ALANINE AMINOTRANSFERASE 14 U/L (12-78); ALBUMIN 2.9 g/dL (3.4-5.0); ANION GAP 4 mmol/L (5-15); CALCIUM 8.5 mg/dL (8.5-10.1); CHLORIDE 108 mmol/L (98-107); CREATININE 0.89 mg/dL (0.55-1.02)
[2021-01-15 22:50] LABS: ALKALINE PHOSPHATASE 78 U/L (45-117); BILIRUBIN,TOTAL 0.2 mg/dL (0.2-1.0); TOTAL PROTEIN 5.9 g/dL (6.4-8.2)
[2021-01-15 23:09] VITALS: BP 97/45
[2021-01-15 23:18] VITALS: BP 102/53
[2021-01-15 23:20] LABS: INTERNATIONAL NORMALIZED RATIO 1.02 (0.93-1.1); PROTHROMBIN TIME 10.9 Seconds (9.6-11.5)
[2021-01-15] MEDS ORDERED: PANTOPRAZOLE 80 MG in SODIUM CHLORIDE 0.9% 100 ML IV SCH (23:30)
[2021-01-15] MEDS ORDERED: PANTOPRAZOLE 80 MG in SODIUM CHLORIDE 0.9% 50 ML IVPB ONE (23:30)
[2021-01-15 23:31] VITALS: BP 107/50
[2021-01-16] MEDS ORDERED: POLYETHYLENE GLYCOL 17 GM PACKET PO PRN
[2021-01-16] MEDS ORDERED: DOCUSATE 100 MG CAPSULE PO PRN
[2021-01-16] MEDS ORDERED: MELATONIN 5 MG TABLET PO PRN
[2021-01-16] MEDS ORDERED: ENALAPRILAT 1.25 MG/ML, 2ML IVPush PRN
[2021-01-16] MEDS ORDERED: LABETALOL 5MG/ML, 20ML IVPush PRN
[2021-01-16] MEDS ORDERED: ONDANSETRON 2MG/ML, 2ML IVPush PRN ×2
[2021-01-16] MEDS ORDERED: MORPHINE SULFATE 4 MG/ML, 1ML IVPush PRN
[2021-01-16] MEDS ORDERED: BISACODYL 10 MG SUPP PR PRN
[2021-01-16] MEDS ORDERED: ACETAMINOPHEN 325 MG TABLET PO PRN
[2021-01-16] MEDS ORDERED: TRAZODONE 50MG TABLET PO PRN
[2021-01-16] MEDS ORDERED: ONDANSETRON ODT 4 MG PO PRN
[2021-01-16] MEDS ORDERED: morphine SULFATE 10 MG/ML, 1ML IVPush PRN
--- NOTE | 2021-01-16 00:14 | NUR ---
Pt to be admitted to TELE 2, room 405-2. Report called to
[2021-01-16] MEDS ORDERED: MORPHINE SULFATE 4 MG/ML, 1ML ONE (00:23)
--- NOTE | 2021-01-16 01:28 | NUR ---
PT A&OX4, PROTONIX GTT STARTED. PTS COVID SWAB IS BACK AND NEGATIVE. PT TO GO UPSTAIRS.
--- NOTE | 2021-01-16 01:36 | NUR ---
PT ROLLED TO FLOOR VIA OPAL PT A&OX4, NO ACUTE DISTRESS.
[2021-01-16] MEDS ORDERED: [UNRECOGNIZED DRUG - OTHER] MC SCH (02:00)
[2021-01-16 02:42] VITALS: BP 99/52
[2021-01-16 03:02] VITALS: BP 92/48
[2021-01-16 05:47] VITALS: BP 95/58
[2021-01-16 07:27] VITALS: BP 104/64
[2021-01-16 08:35] LABS: BASOPHILS % (AUTO) 1 % (0-1); EOSINOPHILS % (AUTO) 0 % (1-7); LYMPHOCYTES % (AUTO) 26 % (22-44); MEAN CORPUSCULAR HEMOGLOBIN 31.5 pg (27.0-34.8); MEAN CORPUSCULAR HGB CONC 33.7 g/dL (32.4-35.8); MEAN PLATELET VOLUME 8.3 fL (7.4-10.4); MONOCYTES % (AUTO) 7 % (2-9); NEUTROPHILS % (AUTO) 66 % (42-75); PLATELET COUNT 200 x10^3/uL (130-400); RED BLOOD COUNT 2.43 x10^6/uL (3.82-5.3); RED CELL DISTRIBUTION WIDTH 16.9 % (9.6-15.2)
[2021-01-16 08:54] LABS: ANION GAP 7 mmol/L (5-15); CALCIUM 8.2 mg/dL (8.5-10.1); CHLORIDE 110 mmol/L (98-107); CREATININE 0.79 mg/dL (0.55-1.02)
[2021-01-16 14:45] VITALS: BP 128/78
[2021-01-16] MEDS: TADALAFIL 20 MG PO SCH (14:48)
[2021-01-16] MEDS: LEVOTHYROXINE 137 MCG TABLET PO SCH (14:49)
[2021-01-16] MEDS: FERROUS GLUCONATE 324 MG TABLET PO SCH ×2 (14:50→20:01)
[2021-01-16] MEDS: PANTOPRAZOLE 80 MG in SODIUM CHLORIDE 0.9% 100 ML IV SCH (14:50)
[2021-01-16 20:04] VITALS: BP 105/67
[2021-01-16] MEDS ORDERED: AMBRISENTAN 10 MG PO SCH (21:00)
[2021-01-17 00:59] VITALS: BP 100/60
[2021-01-17] MEDS: PANTOPRAZOLE 80 MG in SODIUM CHLORIDE 0.9% 100 ML IV SCH ×2 (01:40→12:00)
[2021-01-17 03:27] LABS: BASOPHILS % (AUTO) 1 % (0-1); EOSINOPHILS % (AUTO) 1 % (1-7); LYMPHOCYTES % (AUTO) 27 % (22-44); MEAN CORPUSCULAR HEMOGLOBIN 31.9 pg (27.0-34.8); MEAN CORPUSCULAR HGB CONC 33.7 g/dL (32.4-35.8); MEAN PLATELET VOLUME 9.2 fL (7.4-10.4); MONOCYTES % (AUTO) 8 % (2-9); NEUTROPHILS % (AUTO) 63 % (42-75); PLATELET COUNT 178 x10^3/uL (130-400); RED BLOOD COUNT 2.39 x10^6/uL (3.82-5.3); RED CELL DISTRIBUTION WIDTH 17.5 % (9.6-15.2)
[2021-01-17 03:36] LABS: ANION GAP 4 mmol/L (5-15); CALCIUM 7.8 mg/dL (8.5-10.1); CHLORIDE 112 mmol/L (98-107); CREATININE 0.75 mg/dL (0.55-1.02)
[2021-01-17 04:27] VITALS: BP 100/65
[2021-01-17 04:43] VITALS: BP 100/62
[2021-01-17] MEDS: LEVOTHYROXINE 137 MCG TABLET PO SCH (05:29)
[2021-01-17 07:40] VITALS: BP 100/62
[2021-01-17] MEDS: FERROUS GLUCONATE 324 MG TABLET PO SCH (09:00)
[2021-01-17] MEDS: TADALAFIL 20 MG PO SCH (09:00)
[2021-01-17] MEDS ORDERED: HYDROmorphone 2 MG/ML, 1ML IVPush PRN (12:30)
[2021-01-17] MEDS ORDERED: ACETAMINOPHEN 325 MG TABLET PO PRN (12:30)
[2021-01-17] MEDS ORDERED: FENTANYL PF 100 MCG/2ML IV PRN (12:30)
[2021-01-17] MEDS ORDERED: DIAZEPAM 5 MG/ML, 2ML IVPush PRN (12:30)
[2021-01-17] MEDS ORDERED: LABETALOL 5MG/ML, 20ML IV PRN (12:30)
[2021-01-17] MEDS ORDERED: ALBUTEROL SULFATE 2.5 MG/3 ML NPPB PRN (12:30)
[2021-01-17] MEDS ORDERED: LACTATED RINGERS 1,000 ML IV SCH (12:30)
[2021-01-17] MEDS ORDERED: hydrALAzine 20 MG/ML, 1ML IV PRN (12:30)
[2021-01-17] MEDS ORDERED: PROMETHAZINE 25 MG/ML, 1ML IV PRN (12:30)
[2021-01-17] MEDS ORDERED: MEPERIDINE/PF 25MG/0.5ML IVPush PRN (12:30)
[2021-01-17] MEDS ORDERED: OXYcodone 5 MG/5 ML ORAL.SOL UDC PO PRN (12:30)
[2021-01-17] MEDS ORDERED: KETOROLAC 30 MG/1 ML IV PRN (12:30)
[2021-01-17 14:13] VITALS: BP 102/55
== END 2021-01-17 16:11 | disposition left against medical advice (07) | DRG 663 ==
LOC: ED 01-16 01:17 → EDIP 01-16 01:31 → 4WST 01-16 01:39
PROVIDERS: ADMIT Internal Medicine; ATTEND Internal Medicine
PROC: 30233N1 Transfusion of Nonautologous Red Blood Cells into Peripheral Vein, Percutaneous Approach (ICD-10-PCS; principal; 2021-01-15)
PROC: 0DJ08ZZ Inspection of Upper Intestinal Tract, Via Natural or Artificial Opening Endoscopic (ICD-10-PCS; 2021-01-17)
DX: D62 Acute posthemorrhagic anemia (principal); J96.11 Chronic respiratory failure with hypoxia; I27.21 Secondary pulmonary arterial hypertension; E88.09 Other disorders of plasma-protein metabolism, not elsewhere classified; E03.9 Hypothyroidism, unspecified; E78.5 Hyperlipidemia, unspecified; G25.81 Restless legs syndrome; F17.210 Nicotine dependence, cigarettes, uncomplicated; I10 Essential (primary) hypertension; J44.9 Chronic obstructive pulmonary disease, unspecified; K55.20 Angiodysplasia of colon without hemorrhage; M06.9 Rheumatoid arthritis, unspecified; Z79.899 Other long term (current) drug therapy; Z87.11 Personal history of peptic ulcer disease; Z91.19 Patient's noncompliance with other medical treatment and regimen; Z83.79 Family history of other diseases of the digestive system
CPT/HCPCS: 36415; 36430; 80048; 80053; 85014; 85018; 85025; 85610; 86850; 86900; 86923; 87635; 93005; 96374; 99291; G0378; C9113; J2270; J7120; P9016